=== PATIENT | male | born 1980 | race Caucasian/White ===

== ENCOUNTER 2020-05-10 10:52 | Inpatient (IN) | payer SELFPAY ==
[2020-05-10 11:06] VITALS: BP 145/117; PULSE 112; RESP 18; TEMP 36.8; O2SAT 99; BMI 25.8
[2020-05-10 11:59] LABS: Basophils % 0.2 %; Eosinophils % 0.2 %; Hematocrit 43.8 % (42.0-52.0); Hemoglobin 14.8 g/dL (11.7-16.6); Lymphocytes # 0.7 10^3/uL (0.8-4.8); Lymphocytes % 5.7 %; Mean Corpuscular HGB Conc 33.8 g/dL (30.0-36.0); Mean Corpuscular Hemoglobin 33.6 pg (28.0-34.0); Mean Corpuscular Volume 99.3 fL (80-94); Mean Platelet Volume 10.4 fL (7.4-10.4); Monocytes # 1.1 10^3/uL (0.2-0.9); Monocytes % 9.6 %; Neutrophils # 9.96 10^3/uL (1.8-7.7); Neutrophils % 83.9 %; Nucleated Red Blood Cells % 0 %; Platelet Count 154 10^3/cmm (130-400); Red Blood Count 4.41 10^6/uL (4.1-5.3); Red Cell Distribution Width 13.5 % (12.1-15.1); White Blood Count 11.9 10^3/uL (4.0-10.0)
[2020-05-10 12:04] LABS: Add Urine Microscopic? YES; Bilirubin Urine 1+ (Negative); Blood Urine 3+ (Negative); Glucose Urine UA Norm (Normal); Ketones Urine 2+ (Negative); Leukocyte Esterase Urine Negative (Negative); Nitrate Urine Negative (Negative); Protein Urine Neg (Negative); Urine Appearance SL Hazy (CLEAR); Urine Color Dark Yellow (Yellow); Urobilinogen Urine 4 mg/dL (Negative); pH Urine 5 (5-7)
[2020-05-10 12:08] LABS: RBC Urine 25-40 /hpf (0-2)
--- NOTE | 2020-05-10 12:08 | W.ED.PSYCH ---
HPI - Psych General: Chief Complaint: Psychiatric Symptoms Stated Complaint: DELUSIONS/ PSYCHOSIS Time Seen by Provider: 05/10/20 11:06 Source: patient, family and police Mode of arrival: other (law enforcement) History of Present Illness: HPI Narrative: This is a 40-year-old male who does not have a prior psychiatric history but who was brought into the emergency department by law enforcement with bizarre behavior. 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 He told the public safety police who found him that someone was in the building directing him on what to do and where to move the motions to. When the officer searched the building there was no one in the building and he looked at it, as there was no one in the building also. He figured the patient was hallucinating. While he was talking to the patient the patient also told the officer that he had maggots coming out of his eyes which he did not. I also spoke to his mother who was in the waiting room and she told me that yesterday the patient was exhibiting bizarre behavior. He was insisting that he needed to go to [place] to save a friend. The friend lives close to the patient and his mother was eventually able to get him to the friend's house and her friend was home unwell. The patient still insisted that he needed to go to [place], he said there were voices in his head telling him he needed to go and the voices also told him to take his pistol with him. His behavior frightened his mother and she was trying to get him to calm to the emergency department for evaluation but he did not. She also recently discovered that the patient has been drinking 1/5 of vodka every day for at least a year and said that he quit drinking maybe 3 to 4 days ago. When the public safety police performed a sobriety test on him he returned a 000. Associated psychiatric symptoms: auditory hallucinations and visual hallucinations Associated symptoms: Reports auditory hallucinations and visual hallucinations; Deny delusions, depression, homicidal ideation, suicidal ideation or racing thoughts Review of Systems General: Reports: 10 or more systems reviewed and unremarkable except in HPI and below Psych: Reports: visual hallucinations and auditory hallucinations; Denies: depression, suicidal ideation or homicidal ideation Physical Exam Const: COMMON NORMALS: no acute distress, average body habitus, patient oriented x3, no limitations, healthy appearing, alert and well nourished HENMT: COMMON NORMALS: normocephalic, atraumatic and moist oral mucous membranes HEAD & SCALP: normocephalic and atraumatic Neck/C-Spine: COMMON NORMALS: no meningeal signs and no JVD Resp: COMMON NORMALS: normal respiratory effort, No retractions, No use of accessory muscles, clear to auscultation bilaterally and percussion normal AUSCULTATION: clear to auscultation bilaterally PERCUSSION: percussion normal Cardio: COMMON NORMALS: no JVD, regular rate, regular rhythm, S1 normal heart sound present, S2 normal heart sound present, No gallops present (Cardio), No clicks present (Cardio), No murmurs present (Cardio), No rub (Cardio) and Peripheral pulses 2+ throughout RATE: regular rate RHYTHM: regular rhythm HEART SOUNDS: S1 normal heart sound present and S2 normal heart sound present PERIPHERAL PULSES: Peripheral pulses 2+ throughout GI: COMMON NORMALS: Normal to inspection, nondistended, normoactive bowel sounds present, Soft to palpation, non-tender, No hepatosplenomegaly present, no masses and no bruits PALPATION: Yes Soft to palpation and Yes No hepatosplenomegaly present Extremity: COMMON NORMALS: normal to inspection, full ROM, capillary refill normal, no calf tenderness and no pedal edema Neuro: COMMON NORMALS: patient oriented x3 SENSORIUM/ORIENTATION: Yes alert MENINGEAL SIGNS: Yes no meningeal signs Psych: THOUGHT CONTENT: No delusions Skin: COMMON NORMALS: no rashes or lesions noted, no wounds, turgor normal, no jaundice, no petechiae and no mottling GENERAL SKIN EXAM: no rashes or lesions noted and turgor normal MDM - Psych MDM Narrative: Medical decision making narrative: 40-year-old male who presented to the emergency department with a psychotic episode. He is admitted to the neuropsychiatric unit for further evaluation and management. Medical Records: Attestation: I reviewed the patient's medical records. Lab Data: Attestation: I reviewed the patient's lab results. Labs: Lab Results 05/10/20 05/10/20 05/10/20 Range/Units 11:30 11:30 11:57 WBC 11.9 H (4.0-10.0) 10^3/ uL RBC 4.41 (4.1-5.3) 10^6/u L Hgb 14.8 (11.7-16.6) g/dL Hct 43.8 (42.0-52.0) % MCV 99.3 H (80-94) fL MCH 33.6 (28.0-34.0) pg MCHC 33.8 (30.0-36.0) g/dL RDW 13.5 (12.1-15.1) % Plt Count 154 (130-400) 10^3/c mm MPV 10.4 (7.4-10.4) fL Neut % (Auto) 83.9 % Lymph % (Auto) 5.7 % [place] % (Auto) 9.6 % Eos % (Auto) 0.2 % Baso % (Auto) 0.2 % Neut # (Auto) 9.96 H (1.8-7.7) 10^3/u L Lymph # (Auto) 0.7 L (0.8-4.8) 10^3/u L [place] # (Auto) 1.1 H (0.2-0.9) 10^3/u L Eos # (Auto) 0.0 (0.0-0.8) 10^3/u L Baso # (Auto) 0.0 (0.0-0.1) 10^3/u L Nucleated RBC % (a uto) 0 % Nucleated RBCs # 0.0 /100WBC Sodium 136 (136-145) mmol/L Potassium 3.9 (3.5-5.1) mmol/L Chloride 88 L (98-107) mmol/L Carbon Dioxide 18 L (22-29) mmol/L Anion Gap 33.9 H (5-19) BUN 25 H (6-20) mg/dL Creatinine 1.0 (0.7-1.2) mg/dL GFR Calculation 83.2 L (90-130) mL/min Glucose 136 H (65-115) mg/dL Calculated Osmolal ity 288 (285-295) mOsm/k g Calcium 9.4 (8.5-10.5) mg/dL Total Bilirubin 2.6 H (0.15-1.2) mg/dL AST 220 H (0-40) U/L ALT 84 H (0-41) U/L Alkaline Phosphata se 103 (40-130) IU/L Total Protein 8.2 (6.6-8.7) g/dL Albumin 5.0 (3.5-5.2) g/dL Globulin 3.2 (1.3-4.6) g/dL TSH 0.47 (0.27-4.20) uIU/ mL Urine Color (Yellow) Urine Appearance (CLEAR) Urine pH (5-7) Ur Specific Gravit y (1.005-1.030) Urine Protein (Negative) Urine Glucose (UA) (Normal) Urine Ketones (Negative) Urine Blood (Negative) Urine Nitrate (Negative) Urine Bilirubin (Negative) Urine Urobilinogen (Negative) mg/dL Ur Leukocyte Nicolle ase (Negative) Urine RBC (0-2) /hpf Urine WBC (0-5) /hpf Ur Squamous Epith Cells (0-5) /hpf Amorphous Sediment Urine Bacteria (NONE) /hpf Hyaline Casts /lpf Urine Mucus /hpf Salicylates 0.4 L (3-10) mg/dL Urine Opiates Scre en Negative (Negative) ng/mL Acetaminophen < 5.0 L (10-30) ug/mL Ur Barbiturates Sc reen Negative (Negative) ng/mL Ur Phencyclidine S crn Negative (Negative) ng/mL Ur Amphetamines Sc reen Negative (Negative) ng/mL U Benzodiazepines Scrn Negative (Negative) ng/mL Urine Cocaine Scre en Negative (Negative) ng/mL U Marijuana (THC) Screen Negative (Negative) ng/mL 05/10/20 Range/Units 11:57 WBC (4.0-10.0) 10^3/ uL RBC (4.1-5.3) 10^6/u L Hgb (11.7-16.6) g/dL Hct (42.0-52.0) % MCV (80-94) fL MCH (28.0-34.0) pg MCHC (30.0-36.0) g/dL RDW (12.1-15.1) % Plt Count (130-400) 10^3/c mm MPV (7.4-10.4) fL Neut % (Auto) % Lymph % (Auto) % [place] % (Auto) % Eos % (Auto) % Baso % (Auto) % Neut # (Auto) (1.8-7.7) 10^3/u L Lymph # (Auto) (0.8-4.8) 10^3/u L [place] # (Auto) (0.2-0.9) 10^3/u L Eos # (Auto) (0.0-0.8) 10^3/u L Baso # (Auto) (0.0-0.1) 10^3/u L Nucleated RBC % (a uto) % Nucleated RBCs # /100WBC Sodium (136-145) mmol/L Potassium (3.5-5.1) mmol/L Chloride (98-107) mmol/L Carbon Dioxide (22-29) mmol/L Anion Gap (5-19) BUN (6-20) mg/dL Creatinine (0.7-1.2) mg/dL GFR Calculation (90-130) mL/min Glucose (65-115) mg/dL Calculated Osmolal ity (285-295) mOsm/k g Calcium (8.5-10.5) mg/dL Total Bilirubin (0.15-1.2) mg/dL AST (0-40) U/L ALT (0-41) U/L Alkaline Phosphata se (40-130) IU/L Total Protein (6.6-8.7) g/dL Albumin (3.5-5.2) g/dL Globulin (1.3-4.6) g/dL TSH (0.27-4.20) uIU/ mL Urine Color Dark yellow (Yellow) Urine Appearance Sl hazy (CLEAR) Urine pH 5 (5-7) Ur Specific Gravit y 1.030 (1.005-1.030) Urine Protein Neg (Negative) Urine Glucose (UA) Norm (Normal) Urine Ketones 2+ H (Negative) Urine Blood 3+ H (Negative) Urine Nitrate Negative (Negative) Urine Bilirubin 1+ H (Negative) Urine Urobilinogen 4 H (Negative) mg/dL Ur Leukocyte Nicolle ase Negative (Negative) Urine RBC 25-40 H (0-2) /hpf Urine WBC Rare (0-5) /hpf Ur Squamous Epith Cells Rare (0-5) /hpf Amorphous Sediment Not Reportable Urine Bacteria 2+ H (NONE) /hpf Hyaline Casts 40-55 H /lpf Urine Mucus 1+ /hpf Salicylates (3-10) mg/dL Urine Opiates Scre en (Negative) ng/mL Acetaminophen (10-30) ug/mL Ur Barbiturates Sc reen (Negative) ng/mL Ur Phencyclidine S crn (Negative) ng/mL Ur Amphetamines Sc reen (Negative) ng/mL U Benzodiazepines Scrn (Negative) ng/mL Urine Cocaine Scre en (Negative) ng/mL U Marijuana (THC) Screen (Negative) ng/mL Discharge Plan Discharge Patient Disposition: Admitted As Inpatient Admit Provider: Geo Werner Clinical Impression: Acute psychosis, Alcohol use disorder Condition: Stable Coding Level of Care Code ED Client Development Consultant for Mauro Day
[2020-05-10 12:09] LABS: Bacteria Urine 2+ /hpf; Squamous Epithelial Cell Urine RARE /hpf (0-5); WBC Urine RARE /hpf (0-5)
[2020-05-10 12:10] LABS: Hyaline Casts Urine 40-55 /lpf; Mucus Urine 1+ /hpf
[2020-05-10 12:11] LABS: Add Urine Culture? Yes
[2020-05-10 12:12] LABS: Amphetamines Screen Urine Negative (Negative); Barbiturates Screen Urine Negative (Negative); Benzodiazepines Screen Urine Negative (Negative); Cocaine Screen Urine Negative (Negative); Opiate Screen Urine Negative (Negative); PCP Screen Urine Negative (Negative); THC Screen Urine Negative (Negative)
[2020-05-10 12:22] LABS: Alanine Aminotransferase 84 U/L (0-41); Alkaline Phosphatase 103 IU/L (40-130); Anion Gap 33.9 (5-19); Aspartate Amino Transferase 220 U/L (0-40); Blood Urea Nitrogen 25 mg/dL (6-20); Calcium 9.4 mg/dL (8.5-10.5); Carbon Dioxide 18 mmol/L (22-29); Chloride 88 mmol/L (98-107); Globulin 3.2 g/dL (1.3-4.6); Glomerular Filtration Rate 83.2 mL/min (90-130); Glucose 136 mg/dL (65-115); Osmolality Calculated 288 mOsm/kg (285-295); Potassium 3.9 mmol/L (3.5-5.1); Salicylate 0.4 mg/dL (3-10); Sodium 136 mmol/L (136-145); Thyroid Stimulating Hormone 0.47 uIU/mL (0.27-4.20); Total Bilirubin 2.6 mg/dL (0.15-1.2); Total Protein 8.2 g/dL (6.6-8.7)
[2020-05-10 12:37] LABS: Acetaminophen < 5.0 ug/mL (10-30)
[2020-05-10 14:04] VITALS: BP 143/93; PULSE 102; RESP 16; O2SAT 98
[2020-05-10 14:10] VITALS: BP 143/93; PULSE 102; RESP 16; O2SAT 98
[2020-05-10] MEDS: multivitamin therapeutic Tablet 1 TAB PO (14:14)
[2020-05-10] MEDS: folic acid 1 mg Tablet PO (14:15)
[2020-05-10 14:34] VITALS: BP 123/85; PULSE 109; RESP 20; TEMP 36.6; O2SAT 95
[2020-05-10 18:22] VITALS: BP 123/85; PULSE 109; RESP 20; TEMP 36.6; O2SAT 95
[2020-05-10 20:14] VITALS: BP 119/82; PULSE 122; RESP 17; TEMP 37.5; O2SAT 97
--- NOTE | 2020-05-10 23:22 | PC.NURSE ---
Staff was doing 2315 rounds when staff walked by patients room patient stated, I heard what you said. Is it true? Staff asked patient if he was hearing this because no one has said anything. Patient then states, I guess I don't know why I'm here. Staff informed patient of why he brought to the unit. 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 Patients states that he remembers the copy holder having something on his glasses and saying that it looked like a maggot.
[2020-05-11 06:00] VITALS: BP 143/93; PULSE 90; RESP 18; TEMP 36.9; O2SAT 97
[2020-05-11] MEDS: folic acid 1 mg Tablet PO (08:20)
[2020-05-11] MEDS: thiamine 100 mg Tablet PO (08:20)
[2020-05-11] MEDS: multivitamin therapeutic Tablet 1 TAB PO (08:20)
--- NOTE | 2020-05-11 10:39 | PM.NHP ---
Providers/Chief Complaint Admitting Physician: Geo Werner MD Chief Complaint: VISUAL HALLUCINATIONS HPI NPU History of Present Illness Chava Jules is a 40 year old male who presented to the emergency department with the following report: Chief Complaint: Psychiatric Symptoms Stated Complaint: DELUSIONS/ PSYCHOSIS Time Seen by Provider: 05/10/20 11:06 Source: patient, family and police Mode of arrival: other (law enforcement) History of Present Illness: HPI Narrative: This is a 40-year-old male who does not have a prior psychiatric history but who was brought into the emergency department by law enforcement with bizarre behavior. 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 He told the police reserves commander who found him that someone was in the building directing him on what to do and where to move the motions to. When the officer searched the building there was no one in the building and he looked at it, as there was no one in the building also. He figured the patient was hallucinating. While he was talking to the patient the patient also told the officer that he had maggots coming out of his eyes which he did not. I also spoke to his mother who was in the waiting room and she told me that yesterday the patient was exhibiting bizarre behavior. He was insisting that he needed to go to [place] to save a friend. The friend lives close to the patient and his mother was eventually able to get him to the friend's house and her friend was home unwell. The patient still insisted that he needed to go to [place], he said there were voices in his head telling him he needed to go and the voices also told him to take his pistol with him. His behavior frightened his mother and she was trying to get him to calm to the emergency department for evaluation but he did not. She also recently discovered that the patient has been drinking 1/5 of vodka every day for at least a year and said that he quit drinking maybe 3 to 4 days ago. When the police reserves commander performed a sobriety test on him he returned a 000. Associated psychiatric symptoms: auditory hallucinations and visual hallucinations Associated symptoms: Reports auditory hallucinations and visual hallucinations; Deny delusions, depression, homicidal ideation, suicidal ideation or racing thoughts. He is admitted to the neuropsychiatric unit for definitive treatment of those issues. He denied any inpatient psychiatric services, outpatient psychiatric services or significant medication management of any sort. He reports that he took about a pack and half cigarettes a day and reports that he drinks alcohol daily but he quit 3 weeks ago. He denies marijuana use any other illicit drugs. He never been to rehab and never had a DUI. He denies any suicide attempts in his life. He reports that things got strained after he stopped drinking a significant amount daily 3 weeks ago he reports it was really rough going through that withdrawal but he felt fairly good after he got through that first week. He reports that however since then he is having these strange experiences of hearing voices, sounds like a seeing things but often. He reports that over the last week is primarily the hearing sounds and voices. He had what he described as a blackout over the last 48 hours where he really cannot remember with her. 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 Likely they are not pressing charges as it is a [facility] facility and they all assisted in getting here to the hospital to get help. We discussed the risks benefits and alternatives of a trial of Abilify and some trazodone for sleep and he understood and agreed to proceed as is documented in this note. Psychiatric history: As above. Substance abuse history: As above. Family history: He endorses mental health issues on his mother side and addiction issues on his father side and reports having uncles on his mother side that have completed suicide. Developmental history: There were no problems with the , or delivery, learned to walk and talk and met developmental milestones on time, and denies need for speech therapy, learning support, emotional support or special education classes. Psychosocial history: He reports that his parents were together when he was born and that he is the only product of that union. Neither parent has any other children. He reports that his childhood was not bad and he denies emotional, physical or sexual abuse. He graduated from high school and had about a year and a half at [employer]. He endorses being heterosexual but denies ever having any serious relationships. He endorses that he is not very social but he does have his longest relationship as a year and a half but again he reiterated not being very serious. He never been , he never had children, has never been in the and reports that he was raised Rastafari. 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 He reports living in a trailer alone. Legal history: He denies ever being in [facility] or having any legal peril. Medical history: See ED note for full details Meds NPU Home Medications Medication Instructions Recorded Confirmed Last Taken Type No Known Home Medications 05/11/20 05/11/20 Unknown History Allergies Allergy/AdvReac Type Severity Reaction Status Date / Time No Known Allergies Allergy Verified 05/10/20 11:13 Mental Status Exam MSE Comments: This is a well-nourished, well-developed white male in hospital scrubs with limited grooming and adequate eye contact. No abnormal movements except for mild tremulousness. Cooperative with exam in mild distress. Speech was normal rate and volume with some stammering. Mood described as fine, affect anxious. Thought process organized. Thought content: Patient denied suicidal or homicidal ideation, there were no delusions reported or noted, he did endorse auditory hallucinations but no visual hallucinations. Attention and concentration were intact and memory appeared reliable but none were formally tested. He is alert and oriented x3. Insight and judgment appeared fair and impulse control was limited. Vitals/I&O/Wt Last Vital Signs Temp 98.5 F 05/11/20 06:00 Pulse 90 05/11/20 06:00 Resp 18 05/11/20 06:00 BP 143/93 05/11/20 06:00 Pulse Ox 97 05/11/20 06:00 Data NPU : 05/10/20 11:30 05/10/20 11:30 Micro: Microbiology 05/10/20 11:57 Urine Culture - Final Urine,Clean Catch Microbiology 05/10/20 11:57 Urine,Clean Catch Urine Culture - Final A&P Assessment and plan (1) Acute psychosis: Status: Acute (2) Alcohol use disorder: Status: Acute Additional A&P Information This is a 40-year-old white male with no significant history [place] history of alcohol use/addiction who presents 3 weeks or so after his discontinuation of drinking cold turkey with psychotic symptoms. 1. Continue current medication. Start Abilify 10 mg p.o. every morning for psychosis. 2. Continue every 15 minute checks for safety. 3. Encourage individual, group and milieu therapies. 4. Encourage sober living treatment after discharge at the highest level of care to which he is willing to commit. Involuntary Hold Information 96 Hour Hold: 96 Hour Involuntary Admission: Yes 96 Hour Hold Ending Time: 12:01 Attestations NPU Medical Necessity Statement*: Inpatient hospitalization is medically necessary and the clinically appropriate intervention at this time. We will monitor medications and make changes as indicated. Patient will be in the hospital for over two midnights. Likely length of stay 3 to 5 days. Coding Level of Care Code Acute Stoneworking Sander for Mauro Day Diagnoses Acute psychosis F23 Alcohol use disorder
[2020-05-11 13:42] VITALS: BP 131/80; PULSE 110; RESP 18; TEMP 37.2; O2SAT 96
[2020-05-11] MEDS: ARIPiprazole 10 mg Tablet PO (14:52)
[2020-05-11] MEDS: trazodone 50 mg Tablet PO (20:37)
--- NOTE | 2020-05-11 20:40 | PC.NURSE ---
It was reported to present staff in report, that Dr Werner recommended this pt be given HS sleep aide to help him sleep due to pt not sleeping much the prior night. Trazodone 50mg po given.
[2020-05-11 20:59] VITALS: BP 142/91; PULSE 95; RESP 16; TEMP 36.8; O2SAT 97
--- NOTE | 2020-05-11 21:15 | PC.NURSE ---
Pt resting quietly in room with blanket pulled over his head.
[2020-05-12 06:00] VITALS: BP 144/90; PULSE 97; RESP 17; TEMP 36.8; O2SAT 96
[2020-05-12] MEDS: folic acid 1 mg Tablet PO (07:52)
[2020-05-12] MEDS: thiamine 100 mg Tablet PO (07:52)
[2020-05-12] MEDS: multivitamin therapeutic Tablet 1 TAB PO (07:52)
[2020-05-12] MEDS: ARIPiprazole 10 mg Tablet PO (07:52)
--- NOTE | 2020-05-12 13:40 | P.PN_ITS ---
Subjective NPU Subjective: Interval history: Chava presents today reporting that the medication is very helpful. He reports that after approximately an hour of sleeping after he took the medication when he woke up he felt that some of the noise and activity in his brain had greatly slowed down and is even better this morning. He reports he slept fairly well with the trazodone and is feeling very positive about coming to the hospital. We discussed monitoring him a little longer and making sure that we have appropriate plans for follow-up. Mental Status Exam MSE Comments: This is a well-nourished, well-developed white male in hospital scrubs with limited grooming and adequate eye contact. No abnormal movements except for mild tremulousness. Cooperative with exam in less distress. Speech was normal rate and volume with some stammering. Mood described as better, affect less anxious. Thought process organized. Thought content: Patient denied suicidal or homicidal ideation, there were no delusions reported or noted, he endorsed improvement in his auditory hallucinations but no visual hallucinations. Attention and concentration were intact and memory appeared reliable but none were formally tested. He is alert and oriented x3. Insight and judgment appeared fair and impulse control was limited. Vitals/I&O/Wt Last Vital Signs Temp 98.2 F 05/12/20 06:00 Pulse 97 05/12/20 06:00 Resp 17 05/12/20 06:00 BP 144/90 05/12/20 06:00 Pulse Ox 96 05/12/20 06:00 Data NPU : 05/10/20 11:30 05/10/20 11:30 Micro: Microbiology 05/10/20 11:57 Urine Culture - Final Urine,Clean Catch Microbiology 05/10/20 11:57 Urine,Clean Catch Urine Culture - Final A&P Additional A&P Information (1) Acute psychosis: (2) Alcohol use disorder: Additional A&P Information This is a 40-year-old white male with no significant history [place] history of alcohol use/addiction who presents 3 weeks or so after his discontinuation of drinking cold turkey with psychotic symptoms. 1. Continue current medication. We will consider starting propranolol. 2. Continue every 15 minute checks for safety. 3. Encourage individual, group and milieu therapies. 4. Encourage sober living treatment after discharge at the highest level of care to which he is willing to commit. Involuntary Hold Information 96 Hour Hold: 96 Hour Involuntary Admission: Yes 96 Hour Hold Ending Time: 12:01 Attestations NPU Medical Necessity Statement*: Inpatient hospitalization is medically necessary and the clinically appropriate intervention at this time. We will monitor medications and make changes as indicated. Likely length of stay 2-4 days. Coding Level of Care Code Acute Hooking Machine Operator for Mauro Day
[2020-05-12 14:00] VITALS: BP 144/94; PULSE 98; RESP 20; TEMP 37.2; O2SAT 96
[2020-05-12] MEDS: trazodone 50 mg Tablet PO (19:53)
[2020-05-12 19:54] VITALS: BP 144/95; PULSE 108; RESP 16; TEMP 36.9; O2SAT 96
--- NOTE | 2020-05-12 20:10 | PC.NURSE ---
pt given trazodone 50mg po given per Dr Werner recommendations.
[2020-05-13 06:00] VITALS: BP 157/110; PULSE 106; RESP 14; TEMP 37; O2SAT 97
[2020-05-13] MEDS: thiamine 100 mg Tablet PO (08:00)
[2020-05-13] MEDS: ARIPiprazole 10 mg Tablet PO (08:00)
[2020-05-13] MEDS: multivitamin therapeutic Tablet 1 TAB PO (08:01)
[2020-05-13] MEDS: folic acid 1 mg Tablet PO (08:01)
[2020-05-13 13:55] VITALS: BP 130/89; PULSE 102; RESP 17; TEMP 36.9; O2SAT 97
--- NOTE | 2020-05-13 18:14 | PM.NPN ---
Subjective NPU Subjective: Interval history: Chava presents today reporting that he is feeling better each day. With a lengthy discussion about the possibility of him using some time after he stopped over 3 weeks ago with his drinking. He had no recollection of that. We discussed that is why the concern is significant given the timeframe for his blackout. Otherwise the we discussed the risks, benefits and alternatives of discharge tomorrow and he understood and agreed to proceed as is documented in this note. Mental Status Exam MSE Comments: This is a well-nourished, well-developed white male in hospital scrubs with limited grooming and adequate eye contact. No abnormal movements except for mild/resolving tremulousness. Cooperative with exam in no acute distress. Speech was normal rate and volume with less stammering. Mood described as better, affect congruent. Thought process organized. Thought content: Patient denied suicidal or homicidal ideation, there were no delusions reported or noted, he denied auditory or visual hallucinations. Attention and concentration were intact and memory appeared reliable except for the blackout events, but none were formally tested. He is alert and oriented x3. Insight and judgment appeared fair and impulse control was limited, but improving. Vitals/I&O/Wt Last Vital Signs Temp 99.7 F H 05/13/20 21:14 Pulse 104 H 05/13/20 21:14 Resp 15 05/13/20 21:14 BP 127/85 05/13/20 21:14 Pulse Ox 95 05/13/20 21:14 Data NPU : 05/10/20 11:30 05/10/20 11:30 A&P Additional A&P Information (1) Acute psychosis: (2) Alcohol use disorder: Additional A&P Information This is a 40-year-old white male with no significant history [place] history of alcohol use/addiction who presents 3 weeks or so after his discontinuation of drinking cold with psychotic symptoms. 1. Continue current medication. 2. Continue every 15 minute checks for safety. 3. Encourage individual, group and milieu therapies. 4. Encourage sober living treatment after discharge at the highest level of care to which he is willing to commit. Involuntary Hold Information 96 Hour Hold: 96 Hour Involuntary Admission: Yes 96 Hour Hold Ending Time: 12:01 Attestations NPU Medical Necessity Statement*: Inpatient hospitalization is medically necessary and the clinically appropriate intervention at this time. We will monitor medications and make changes as indicated. Likely length of stay 1-2 days. Coding Level of Care Code Acute Facility Specialist for Mauro Day
[2020-05-13 21:14] VITALS: BP 127/85; PULSE 104; RESP 15; TEMP 37.6; O2SAT 95
--- NOTE | 2020-05-14 05:06 | PC.NURSE ---
PM ASSESSMENT HEART/LUNG SOUNDS NORMAL, V/S ARE WNL, DENIES PAIN, DENIES SI/HI. DENIES AH/VH. PT IS COOPERATIVE WITH STAFF, ASKS AND ANSWERS QUESTION APPROPRIATELY, INTERACTING WITH OTHER PATIENTS IN AN APPROPRIATE MANNER,WILL CONTINUE TO OBSERVE
[2020-05-14 06:00] VITALS: BP 131/88; PULSE 92; RESP 17; TEMP 37.2; O2SAT 98
[2020-05-14] MEDS: propranolol 20 mg Tablet PO (08:19)
[2020-05-14] MEDS: ARIPiprazole 10 mg Tablet PO (08:19)
[2020-05-14] MEDS: multivitamin therapeutic Tablet 1 TAB PO (08:19)
[2020-05-14] MEDS: thiamine 100 mg Tablet PO (08:19)
[2020-05-14] MEDS: folic acid 1 mg Tablet PO (08:19)
--- NOTE | 2020-05-14 11:31 | PM.NDC ---
Diagnoses at Discharge Discharge Diagnosis (1) Acute psychosis: Status: Acute (2) Alcohol use disorder: Status: Acute Reason for Visit Reason for Visit: VISUAL HALLUCINATIONS Brief History: History of Present Illness Chava Jules is a 40 year old male who presented to the emergency department with the following report: Chief Complaint: Psychiatric Symptoms Stated Complaint: DELUSIONS/ PSYCHOSIS Time Seen by Provider: 05/10/20 11:06 Source: patient, family and police Mode of arrival: other (law enforcement) History of Present Illness: HPI Narrative: This is a 40-year-old male who does not have a prior psychiatric history but who was brought into the emergency department by law enforcement with bizarre behavior. 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 He told the regulatory compliance officer who found him that someone was in the building directing him on what to do and where to move the motions to. When the officer searched the building there was no one in the building and he looked at it, as there was no one in the building also. He figured the patient was hallucinating. While he was talking to the patient the patient also told the officer that he had maggots coming out of his eyes which he did not. I also spoke to his mother who was in the waiting room and she told me that yesterday the patient was exhibiting bizarre behavior. He was insisting that he needed to go to [place] to save a friend. The friend lives close to the patient and his mother was eventually able to get him to the friend's house and her friend was home unwell. The patient still insisted that he needed to go to [place], he said there were voices in his head telling him he needed to go and the voices also told him to take his pistol with him. His behavior frightened his mother and she was trying to get him to calm to the emergency department for evaluation but he did not. She also recently discovered that the patient has been drinking 1/5 of vodka every day for at least a year and said that he quit drinking maybe 3 to 4 days ago. When the regulatory compliance officer performed a sobriety test on him he returned a 000. Associated psychiatric symptoms: auditory hallucinations and visual hallucinations Associated symptoms: Reports auditory hallucinations and visual hallucinations; Deny delusions, depression, homicidal ideation, suicidal ideation or racing thoughts. He is admitted to the neuropsychiatric unit for definitive treatment of those issues. He denied any inpatient psychiatric services, outpatient psychiatric services or significant medication management of any sort. He reports that he took about a pack and half cigarettes a day and reports that he drinks alcohol daily but he quit 3 weeks ago. He denies marijuana use any other illicit drugs. He never been to rehab and never had a DUI. He denies any suicide attempts in his life. He reports that things got strained after he stopped drinking a significant amount daily 3 weeks ago he reports it was really rough going through that withdrawal but he felt fairly good after he got through that first week. He reports that however since then he is having these strange experiences of hearing voices, sounds like a seeing things but often. He reports that over the last week is primarily the hearing sounds and voices. He had what he described as a blackout over the last 48 hours where he really cannot remember with her. 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 Likely they are not pressing charges as it is a [facility] and they all assisted in getting here to the hospital to get help. We discussed the risks benefits and alternatives of a trial of Abilify and some trazodone for sleep and he understood and agreed to proceed as is documented in this note. Psychiatric history: As above. Substance abuse history: As above. Family history: He endorses mental health issues on his mother side and addiction issues on his father side and reports having uncles on his mother side that have completed suicide. Developmental history: There were no problems with the , or delivery, learned to walk and talk and met developmental milestones on time, and denies need for speech therapy, learning support, emotional support or special education classes. Psychosocial history: He reports that his parents were together when he was born and that he is the only product of that union. Neither parent has any other children. He reports that his childhood was not bad and he denies emotional, physical or sexual abuse. He graduated from high school and had about a year and a half at [employer]. He endorses being heterosexual but denies ever having any serious relationships. He endorses that he is not very social but he does have his longest relationship as a year and a half but again he reiterated not being very serious. He never been , he never had children, has never been in the and reports that he was raised Yazdanism. 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 He reports living in a trailer alone. Legal history: He denies ever being in alf or having any legal peril. Medical history: See ED note for full details Hospital Course Hospital Course Chava presented to the emergency department with active addiction with some significant blackout events leading to him having police involvement with no recollection of him going to an old job location believing he still worked there with concerns for lethality and psychosis. He was admitted to the neuropsychiatric unit for definitive treatment of those issues. On the unit he slowly acclimated to the individual, group and milieu therapies provided we did provide appropriate withdrawal protocols and protection from Warnicke's with thiamine multivitamins and folate. He was started on Abilify 10 mg p.o. every morning for psychosis with marked improvement. Was able to contract for safety prior to discharge. During the hospitalization, patient had routine laboratory studies which were within normal limits except for few outliers. Additionally there was a general medical evaluation which was also within normal limits and revealed no new acute processes. Discharge Summary: At the time of discharge, lethality was denied and psychosis was resolving. Mood and anxiety were well managed. Patient endorsed a plan to avoid all drugs of abuse and follow-up with the aftercare recommendations of the treatment team. Patient was evaluated and deemed to be absent credible lethality, and had achieved the maximum benefit from an inpatient hospitalization, so was discharged. Involuntary Hold Information 96 Hour Hold: 96 Hour Involuntary Admission: Yes 96 Hour Hold Ending Time: 12:01 Mental Status Exam MSE Comments: This is a well-nourished, well-developed white male in hospital scrubs with adequate grooming and eye contact. No abnormal movements. Cooperative with exam in no acute distress. Speech was normal rate and volume with less stammering. Mood described as pretty good, affect congruent. Thought process organized. Thought content: Patient denied suicidal or homicidal ideation, there were no delusions reported or noted, he denied auditory or visual hallucinations. Attention and concentration were intact and memory appeared reliable except for the blackout events, but none were formally tested. He is alert and oriented x3. Insight and judgment appeared fair and impulse control was limited, but improving. Discharge Data Vitals: Last Vital Signs Temp 99.0 F 05/14/20 06:00 Pulse 92 05/14/20 06:00 Resp 17 05/14/20 06:00 BP 131/88 05/14/20 06:00 Pulse Ox 98 05/14/20 06:00 Discharge Plan Discharge Patient Disposition: Home Condition: Stable Prescriptions: New folic acid 1 mg Tablet 1 mg PO DAILY 30 Days RF: 0 propranolol 20 mg Tablet 20 mg PO TID 30 Days Qty: 90 RF: 1 aripiprazole 10 mg Tablet 10 mg PO DAILY 30 Days Qty: 30 RF: 1 Vitamin B-1 (mononitrate) 100 mg Tablet 100 mg PO DAILY 30 Days Qty: 30 RF: 1 Thera 400 mcg Tablet 1 tab PO DAILY 30 Days RF: 0 Discharge Orders: Discharge Order (Routine); Ordered 05/14/20 Ordered By: Geo Werner Referrals: [facility] [place] [facility] [Outside] Rina Fabian DO [Physician] - 05/26/20 1:15 pm (Appointment with Dr. Fabian initial visit. ) Discharge Diet: Regular Discharge Activity: Resume usual activity Discharge Attestations NPU Time Spent in Discharge Care*: less than 30 min Specific Discharge Activities: Specific discharge activities: educating patient, discussing with manager case/social workers/dc planners, documenting/other paperwork and evaluating patient/reviewing data Coding Level of Care Code Acute Magneto Specialist for Mauro Day Diagnoses Acute psychosis F23 Alcohol use disorder
[2020-05-14 11:42] VITALS: BP 131/88; PULSE 92; RESP 17; TEMP 37.2; O2SAT 98
== END 2020-05-14 12:16 | disposition home or self-care (01) | DRG 885 ==
LOC: ER 12:17 → NP 12:45
PROVIDERS: Admitting Provider Psychiatry & Neurology Psychiatry; Emergency Provider Family Medicine; Visit Provider Psychiatry & Neurology Psychiatry
DX: F23 Brief psychotic disorder (principal); F10.10 Alcohol abuse, uncomplicated; Z81.8 Family history of other mental and behavioral disorders
CPT/HCPCS: 80053; 80306; 80307; 81001; 84443; 85025; 87086; 99285; J3411

== ENCOUNTER → 2020-10-29 15:06 | Outpatient (BNVA) | payer OTHER, SELFPAY | PROVIDERS: PCP Family Medicine; Visit Provider Nurse Practitioner Family | DX: Z02.6 Encounter for examination for insurance purposes (principal); S61.210A Laceration without foreign body of right index finger without damage to nail, initial encounter; S51.811A Laceration without foreign body of right forearm, initial encounter; X58.XXXA Exposure to other specified factors, initial encounter | CPT/HCPCS: 80307 ==

== ENCOUNTER 2022-06-08 12:58 | Inpatient (IN) | payer OTHER, SELFPAY ==
[2022-06-08] VITALS (17 sets, daily range): BP systolic 136–156; BP diastolic 87–98; PULSE 77–95; RESP 14–24; TEMP 37.1–37.4; O2SAT 94–98; BMI 29.2
[2022-06-08 15:36] LABS: Basophils # 0.1 10^3/uL (0.0-0.1); Basophils % 0.7 %; Eosinophils # 0.6 10^3/uL (0.0-0.8); Eosinophils % 5.1 %; Hematocrit 45.1 % (42.0-52.0); Hemoglobin 14.6 g/dL (11.7-16.6); Lymphocytes # 1.6 10^3/uL (0.8-4.8); Mean Corpuscular HGB Conc 32.4 g/dL (30.0-36.0); Mean Corpuscular Hemoglobin 31.5 pg (28.0-34.0); Mean Corpuscular Volume 97.2 fl (80-94); Mean Platelet Volume 9.2 fL (7.4-10.4); Monocytes % 8.7 %; Neutrophils # 7.62 10^3/uL (1.8-7.7); Neutrophils % 69.9 %; Nucleated Red Blood Cells % 0 %; Platelet Count 244 10^3/cmm (130-400); Red Blood Count 4.64 10^6/uL (4.1-5.3); Red Cell Distribution Width 13.2 % (12.1-15.1); White Blood Count 10.9 10^3/uL (4.0-10.0)
[2022-06-08 16:02] LABS: Alanine Aminotransferase 7 U/L (0-41); Albumin Level 3.7 g/dL (3.5-5.2); Alkaline Phosphatase 86 U/L (40-130); Anion Gap 17.8 (5-19); Aspartate Amino Transferase 15 U/L (0-40); Blood Urea Nitrogen 8 mg/dL (6-20); Calcium 8.7 mg/dL (8.5-10.5); Carbon Dioxide 23 mmol/L (22-29); Chloride 99 mmol/L (98-107); Globulin 2.8 g/dL (1.3-4.6); Glomerular Filtration Rate 148.5 mL/min (90-130); Glucose 90 mg/dL (65-115); Lipase 256 U/L (13-60); Osmolality Calculated 280 mOsm/kg (285-295); Potassium 3.8 mmol/L (3.5-5.1); Sodium 136 mmol/L (136-145); Total Bilirubin 0.7 mg/dL (0.15-1.2); Total Protein 6.5 g/dL (6.6-8.7)
--- NOTE | 2022-06-08 18:08 | PC.NURSE ---
VS OBTAINED VIA TECH
--- NOTE | 2022-06-08 19:08 | CTR_ITS ---
PROCEDURE INFORMATION: Exam: CT Abdomen And Pelvis With Contrast Exam date and time: 06/08/2022 7:51 PM Age: 42 years old Clinical indication: Abdominal pain; Generalized; Patient HX: C/O diffuse abd pain. Elevated lipase. ; Additional info: Elevated lipase, abd pain TECHNIQUE: Imaging protocol: Computed tomography of the abdomen and pelvis with contrast. Sagittal and coronal reformatted images were created and reviewed. Radiation optimization: All CT scans at this facility use at least one of these dose optimization techniques: automated exposure control; mA and/or kV adjustment per patient size (includes targeted exams where dose is matched to clinical indication); or iterative reconstruction. Contrast material: OMNI 350; Contrast volume: 100 ml; Contrast route: INTRAVENOUS (IV); REPORTING DATA: Count of CT and Cardiac NM exams in prior 12 months: This patient has received 0 known CTs and 0 known cardiac nuclear medicine studies in the 12 months prior to the current study. COMPARISON: CR XR abdomen min 2V [id number] 06/07/2022 10:31 AM RADIATION DOSE METRICS: Total DLP (mGy-cm): 643.36 FINDINGS: Lungs: Visualized lungs are clear. Calcified granuloma in the right middle lobe. Pleural spaces: No pleural effusion. Heart: Visualized portions of the heart are unremarkable. Liver: Nodular contour of the liver with hypertrophy of the left hepatic lobe. Gallbladder and bile ducts: The gallbladder is unremarkable. No biliary ductal dilatation. No biliary ductal dilatation. Pancreas: Enlargement of the head of the pancreas with associated peripancreatic inflammatory change and small amount of free fluid, consistent with focal mild acute pancreatitis. Findings suspicious for a small pseudocyst in the head of the pancreas. No pancreatic necrosis. Small fluid collection in the head of the pancreas measures 1.3 x 0.7 cm (series 3, image 35). Findings are suspicious for a small pseudocyst. Spleen: The spleen is unremarkable. Adrenal glands: The right and left adrenal glands are unremarkable. Kidneys and ureters: The right and left kidneys are unremarkable. The right and left ureters are unremarkable. Stomach and bowel: There is severe wall thickening with surrounding marked inflammation and fluid of the distal ascending colon and hepatic flexure with foci of pneumatosis at the hepatic flexure (series 3, images 34-49). Appendix: The appendix is visualized and is unremarkable. No evidence of appendicitis. Intraperitoneal space: Small volume ascites. Vasculature: Minimal atherosclerotic changes in the visualized arteries. No evidence for aortic aneurysm or aortic dissection. Hepatic veins, portal veins, splenic vein, and SMV are patent. Lymph nodes: No lymphadenopathy. Urinary bladder: Diffuse, mild wall thickening of the bladder. Reproductive: Unremarkable as visualized. Bones/joints: Bilateral pars defects at L5 with grade 1 anterolisthesis of L5 on S1. Mild spinal canal stenosis at L2-L3 through L5-S1. Multilevel foraminal stenosis of varying severity in the lumbar spine. Soft tissues: No acute abnormality in the extra-abdominal soft tissues. CT/CT abdomen pelvis w con* [id number] IMPRESSION: 1. Findings consistent with severe colitis in the distal ascending colon and hepatic flexure. Pneumatosis at the hepatic flexure, findings are concerning for a possible ischemic colitis. Recommend clinical correlation. 2. Changes consistent with focal mild acute pancreatitis involving the head of the pancreas. No pancreatic necrosis. Findings suggesting a small pseudocyst in the head of the pancreas. 3. Diffuse, mild wall thickening of the bladder. In the correct clinical setting, this may suggest cystitis. Recommend correlation with laboratory findings. Alternatively, this may be secondary to chronic outlet obstruction. 4. Findings consistent with cirrhosis and mild portal hypertension with small volume ascites. 5. Incidental/nonacute findings are listed in the report.
--- NOTE | 2022-06-08 19:09 | ED_ITS ---
HPI - Abdominal Pain General: Chief Complaint: Abdominal Pain Stated Complaint: abd pain Time Seen by Provider: 06/08/22 19:07 History of Present Illness: 42-year-old male patient comes in today with mid abdominal pain. Patient reports that he has had some significant abdominal discomfort and pain for the last 3 to 4 days. Patient also reports similar symptoms about 1 month ago. At that time patient was told he was constipated. Patient denies any recent alcohol use. Patient appears nontoxic. Abdomen soft with some epigastric tenderness. Associated Symptoms: Reports nausea; Denies constipation, diarrhea, fever(s) and vomiting Review of Systems General: Reports: 10 or more systems reviewed and unremarkable except in HPI and below Const: Denies: fever(s) Resp: Denies: dyspnea GI: Reports: abdominal pain and nausea; Denies: vomiting, diarrhea or constipation Skin/Breast: Denies: rash PFSH ED 2 PFSH: Medical History Insomnia Surgical History No pertinent past surgical history Family History Other Chronic kidney disease (CKD) Diabetes Social History Smoking and tobacco status: never smoked Alcohol intake: never Substance/Drug Use: never Physical Exam Const: COMMON NORMALS: alert HENMT: COMMON NORMALS: normocephalic HEAD & SCALP: normocephalic Neck/C-Spine: COMMON NORMALS: full ROM Resp: COMMON NORMALS: normal respiratory effort and clear to auscultation bilaterally AUSCULTATION: clear to auscultation bilaterally Cardio: COMMON NORMALS: regular rate and regular rhythm RATE: regular rate RHYTHM: regular rhythm GI: COMMON NORMALS: Soft to palpation AUSCULTATION: Yes normoactive bowel sounds PALPATION: Yes Soft to palpation and Yes Tenderness to palpation present (GI) (Generalized) : COMMON NORMALS: Yes no CVA tenderness BLADDER/KIDNEY EXAM: Yes no CVA tenderness Back/Pelvis: COMMON NORMALS: no CVA tenderness Extremity: COMMON NORMALS: no pedal edema Neuro: SENSORIUM/ORIENTATION: Yes alert Skin: COMMON NORMALS: turgor normal GENERAL SKIN EXAM: turgor normal Course ED course: 2112, reviewed patient with Dr. Avina who recommended consulting surgery and admitting patient. Discussed with patient who agreed to plan. 2133, discussed with Dr. Cohen, surgeon on-call. He agreed to consult on patient and see him in the morning. Vital Signs: Vital signs: Vital Signs Temperature 98.9 F 06/08/22 18:08 Pulse Rate 95 06/08/22 21:42 Respiratory Rate 16 06/08/22 21:42 Blood Pressure 136/97 06/08/22 21:42 Pulse Oximetry 94 06/08/22 21:42 Oxygen Delivery Me thod Room Air 06/08/22 15:31 MDM - Abdominal Pain Medical Decision Making 42-year-old male patient comes in today with mid abdominal pain. Patient reports symptoms for last 2 to 3 days. Patient appears nontoxic. On exam patient's abdomen is soft with some normal active bowel sounds. Patient does have some mid abdominal tenderness that is nonguarding or rebound related. Differential diagnosis includes but not limited to gastritis, pancreatitis, gallbladder disease, constipation, diverticulitis. On labs lipase was 256. Remainder of labs were unremarkable. Patient does have some mild leukocytosis at 10.9. CT of the abdomen pelvis was ordered that was significant for some mild acute pancreatitis and severe colitis. I reviewed this with Dr. Avina who recommended consultation with surgeon and admission to hospitalist. Dr. Rosalia gloria was notified and agreed to evaluate patient in the morning for further recommendations of treatment. Dr. Espinal was consulted for hospitalist admission. Patient was started on Zosyn and IV fluids. Lab Data 06/08/22 15:16 06/08/22 15:16 Labs/Radiology: Radiology Impressions Abdomen/Pelvis CT 06/08/22 19:08 IMPRESSION: 1. Findings consistent with severe colitis in the distal ascending colon and hepatic flexure. Pneumatosis at the hepatic flexure, findings are concerning for a possible ischemic colitis. Recommend clinical correlation. 2. Changes consistent with focal mild acute pancreatitis involving the head of the pancreas. No pancreatic necrosis. Findings suggesting a small pseudocyst in the head of the pancreas. 3. Diffuse, mild wall thickening of the bladder. In the correct clinical setting, this may suggest cystitis. Recommend correlation with laboratory findings. Alternatively, this may be secondary to chronic outlet obstruction. 4. Findings consistent with cirrhosis and mild portal hypertension with small volume ascites. 5. Incidental/nonacute findings are listed in the report. ADDENDUM: 06/08/222108 THIS REPORT CONTAINS FINDINGS THAT MAY BE CRITICAL TO PATIENT CARE. The findings were verbally communicated via telephone conference with KING HARRINGTON at 9:08 PM CDT on 06/08/2022. The findings were acknowledged and understood. Laboratory Results WBC 10.9 10^3/uL (4.0-10.0) H 06/08/22 15:16 RBC 4.64 10^6/uL (4.1-5.3) 06/08/22 15:16 Hgb 14.6 g/dL (11.7-16.6) 06/08/22 15:16 Hct 45.1 % (42.0-52.0) 06/08/22 15:16 MCV 97.2 fl (80-94) H 06/08/22 15:16 MCH 31.5 pg (28.0-34.0) 06/08/22 15:16 MCHC 32.4 g/dL (30.0-36.0) 06/08/22 15:16 RDW 13.2 % (12.1-15.1) 06/08/22 15:16 Plt Count 244 10^3/cmm (130-400) 06/08/22 15:16 MPV 9.2 fL (7.4-10.4) 06/08/22 15:16 Neut % (Auto) 69.9 % 06/08/22 15:16 Lymph % (Auto) 15.0 % 06/08/22 15:16 [place] % (Auto) 8.7 % 06/08/22 15:16 Eos % (Auto) 5.1 % 06/08/22 15:16 Baso % (Auto) 0.7 % 06/08/22 15:16 Neut # (Auto) 7.62 10^3/uL (1.8-7.7) 06/08/22 15:16 Lymph # (Auto) 1.6 10^3/uL (0.8-4.8) 06/08/22 15:16 [place] # (Auto) 1.0 10^3/uL (0.2-0.9) H 06/08/22 15:16 Eos # (Auto) 0.6 10^3/uL (0.0-0.8) 06/08/22 15:16 Baso # (Auto) 0.1 10^3/uL (0.0-0.1) 06/08/22 15:16 Nucleated RBC % (auto) 0 % 06/08/22 15:16 Nucleated RBCs # 0.0 /100WBC 06/08/22 15:16 Sodium 136 mmol/L (136-145) 06/08/22 15:16 Potassium 3.8 mmol/L (3.5-5.1) 06/08/22 15:16 Chloride 99 mmol/L (98-107) 06/08/22 15:16 Carbon Dioxide 23 mmol/L (22-29) 06/08/22 15:16 Anion Gap 17.8 (5-19) 06/08/22 15:16 BUN 8 mg/dL (6-20) 06/08/22 15:16 Creatinine 0.6 mg/dL (0.7-1.2) L 06/08/22 15:16 GFR Calculation 148.5 mL/min (90-130) H 06/08/22 15:16 Glucose 90 mg/dL (65-115) 06/08/22 15:16 Calculated Osmolality 280 mOsm/kg (285-295) L 06/08/22 15:16 Lactate 0.8 mmol/L (0.5-2.2) 06/08/22 19:20 Calcium 8.7 mg/dL (8.5-10.5) 06/08/22 15:16 Total Bilirubin 0.7 mg/dL (0.15-1.2) 06/08/22 15:16 AST 15 U/L (0-40) 06/08/22 15:16 ALT 7 U/L (0-41) 06/08/22 15:16 Alkaline Phosphatase 86 U/L (40-130) 06/08/22 15:16 Total Protein 6.5 g/dL (6.6-8.7) L 06/08/22 15:16 Albumin 3.7 g/dL (3.5-5.2) 06/08/22 15:16 Globulin 2.8 g/dL (1.3-4.6) 06/08/22 15:16 Triglycerides 84 mg/dL (0-150) 06/08/22 19:20 Lipase 256 U/L (13-60) H 06/08/22 15:16 Urine Color Yellow (Yellow) 06/08/22 20:31 Urine Appearance Clear (CLEAR) 06/08/22 20:31 Urine pH 7 (5-7) 06/08/22 20:31 Ur Specific [place] 1.000 (1.005-1.030) L 06/08/22 20:31 Urine Protein 1+ (Negative) H 06/08/22 20:31 Urine Glucose (UA) Norm (Normal) 06/08/22 20:31 Urine Ketones 2+ (Negative) H 06/08/22 20:31 Urine Blood Neg (Negative) 06/08/22 20:31 Urine Nitrate Negative (Negative) 06/08/22 20:31 Urine Bilirubin Neg (Negative) 06/08/22 20:31 Urine Urobilinogen 1 mg/dL (Negative) H 06/08/22 20:31 Ur Leukocyte Esterase Negative (Negative) 06/08/22 20:31 Urine RBC None /hpf (0-2) 06/08/22 20:31 Urine WBC None /hpf (0-5) 06/08/22 20:31 Ur Squamous Epith Cells None /hpf (0-5) 06/08/22 20:31 Amorphous Sediment Not Reportable 06/08/22 20:31 Urine Bacteria None /hpf (NONE) 06/08/22 20:31 Urine Mucus 1+ /hpf 06/08/22 20:31 Discharge Plan Discharge Condition: Stable Prescriptions: No Action lisinopril 20 mg tablet 20 mg PO DAILY Qty: 30 1RF Vitamin B-1 (mononitrate) 100 mg Tablet 100 mg PO DAILY 30 Days Qty: 30 1RF aripiprazole 10 mg tablet 10 mg PO DAILY 30 Days Qty: 30 1RF Coding Level of Care Code ED Wire Splicer for Chg Barb
[2022-06-08] MEDS: ondansetron 2 mg/ML SDV 2 mL 4 MG IVP (19:25)
[2022-06-08] MEDS: fentaNYL 50 mcg/mL INJ 2mL IVP ×2 (19:26→22:01)
[2022-06-08] MEDS: sodium chloride 0.9% 500 ML 999 ML IV (19:45)
[2022-06-08 19:51] LABS: Triglycerides 84 mg/dL (0-150)
[2022-06-08] MEDS: iohexol 350 mg/mL 500 mL Btl (per mL) IV ×2 (19:51→22:37)
[2022-06-08 21:11] LABS: Add Urine Microscopic? YES; Bilirubin Urine Neg (Negative); Blood Urine Neg (Negative); Glucose Urine UA Norm (Normal); Ketones Urine 2+ (Negative); Leukocyte Esterase Urine Negative (Negative); Nitrate Urine Negative (Negative); Protein Urine 1+ (Negative); Urine Appearance Clear (CLEAR); Urine Color Yellow (Yellow); Urobilinogen Urine 1 mg/dL (Negative); pH Urine 7 (5-7)
[2022-06-08 21:12] LABS: Add Urine Culture? No; Mucus Urine 1+ /hpf
[2022-06-08 21:40] LABS: Lactate (Lactic Acid level) 0.8 mmol/L (0.5-2.2)
[2022-06-08] MEDS: piperacillin-tazobactam 3.375 GM in sodium chloride 0.9% (plus) 50 ML IV (21:50)
--- NOTE | 2022-06-08 22:13 | CTR_ITS ---
PROCEDURE INFORMATION: Exam: CTA Abdomen and Pelvis With Contrast Exam date and time: 06/08/2022 10:33 PM Age: 42 years old Clinical indication: Other: Ischemia; Patient HX: Concern for ishemic colitis specifically to region of hepatic flexure as noted on prior abd CT this evening. ; Additional info: R/O ischemic bowel TECHNIQUE: Imaging protocol: Computed tomographic angiography of the abdomen and pelvis with contrast. 3D rendering (Not supervised by radiologist): MIP and/or 3D reconstructed images were created by the technologist. Radiation optimization: All CT scans at this facility use at least one of these dose optimization techniques: automated exposure control; mA and/or kV adjustment per patient size (includes targeted exams where dose is matched to clinical indication); or iterative reconstruction. Contrast material: OMNI 350; Contrast volume: 100 ml; Contrast route: INTRAVENOUS (IV); REPORTING DATA: Count of CT and Cardiac NM exams in prior 12 months: This patient has received 0 known CTs and 0 known cardiac nuclear medicine studies in the 12 months prior to the current study. COMPARISON: CT abdomen pelvis w con* [id number] 06/08/2022 7:51 PM RADIATION DOSE METRICS: Total DLP (mGy-cm): 654.89 FINDINGS: Lungs: Bibasilar atelectasis. Aorta: No aortic aneurysm. No aortic dissection. Celiac trunk and mesenteric arteries: No occlusion or significant stenosis. Renal arteries: No occlusion or significant stenosis. Right iliac arteries: No occlusion or significant stenosis. Left iliac arteries: No occlusion or significant stenosis. Liver: Hepatic steatosis. Cirrhotic liver suspected. Gallbladder and bile ducts: See Pancreas finding. Pancreas: 13 mm low-density structure in the pancreatic head may reflect a dilated portion of the pancreatic duct or common bile duct, similar to prior exam, consider further evaluation with MRCP, an underlying mass may also be a consideration. Spleen: Unremarkable. No splenomegaly. Adrenal glands: Unremarkable. No mass. Kidneys and ureters: Unremarkable. No solid mass. No hydronephrosis. Stomach and bowel: Ascending and proximal transverse colon wall thickening with surrounding edema suggestive of a colitis. Appendix: No evidence of appendicitis. Intraperitoneal space: Moderate ascites in the abdomen. Lymph nodes: Scattered prominent subcentimeter short axis mesenteric lymph nodes throughout the abdomen, nonspecific. Urinary bladder: Unremarkable. No mass. Reproductive: Unremarkable as visualized. Bones/joints: Chronic bilateral L5 pars interarticularis defects. Soft tissues: Unremarkable. CT/CT angio abdomen pelvis [id number] IMPRESSION: 1. Ascending and proximal transverse colon wall thickening with surrounding edema suggestive of a colitis. 2. Bibasilar atelectasis. 3. Hepatic steatosis. 4. Cirrhotic liver suspected. 5. Moderate ascites in the abdomen. 6. Chronic bilateral L5 pars interarticularis defects. 7. 13 mm low-density structure in the pancreatic head may reflect a dilated portion of the pancreatic duct or common bile duct, similar to prior exam, consider further evaluation with MRCP, an underlying mass may also be a consideration. 8. Scattered prominent subcentimeter short axis mesenteric lymph nodes throughout the abdomen, nonspecific.
--- NOTE | 2022-06-08 22:43 | PM.HP ---
Providers/Chief Complaint Admitting Physician: Joana Grubbs MD Chief Complaint: abd pain History of Present Illness Chava Jules is a 42 year old male past medical history of insomnia, hallucinations requiring psychiatric admission in 2020, psychosis presented to the hospital today with complaint of abdominal pain that has been going on for the last 3 weeks. He did he states he saw Dr. Arnaud Grant for abdominal pain. Abdominal x-ray was done and was deemed to be constipated. He states that he was treated for constipation and felt better and felt that the pain improved however the original abdominal pain that he was having for weeks did not improve. He states x-ray pain in a bandlike pattern that starts at the bellybutton and spreads like a spiderweb to both sides of his abdomen . States at times his abdomen will feel sore but at this time there will feel fine. He has been having normal bowel movements and had 2 today. He states that he does not believe he is lactose intolerant however sometimes if he drinks milk at nighttime he will have loose stools. He has never been officially diagnosed with an irritable bowel syndrome or any other abdominal conditions. Denies a fever, diarrhea, nausea, vomiting. States that lower abdomen has constant pain at times. He states that later fluids soups and bland food tends to be better for him as opposed to meet. Denies any epigastric pain or pain radiating to the back. Denies a history of cancers in the family. Has never had a colonoscopy before. Denies blood in stool, blood in vomitus. States his stool is dark brown. Denies smoking or alcohol use. ED course: Blood pressure 136/97 pulse rate 16, pulse 95, temperature 98.9, saturating 94% on room air. CT abdomen pelvis was done which showed 1. ? Findings consistent with severe colitis in the distal ascending colon and hepatic flexure. Pneumatosis at the hepatic flexure, findings are concerning for a possible ischemic colitis. Recommend clinical correlation. 2. ? Changes consistent with focal mild acute pancreatitis involving the head of the pancreas. No pancreatic necrosis. Findings suggesting a small pseudocyst in the head of the pancreas. 3. ? Diffuse, mild wall thickening of the bladder. In the correct clinical setting, this may suggest cystitis. Recommend correlation with laboratory findings. Alternatively, this may be secondary to chronic outlet obstruction. 4. ? Findings consistent with cirrhosis and mild portal hypertension with small volume ascites. 5. ? Incidental/nonacute findings are listed in the report. Case was discussed with general surgery by ER physician who recommended IV fluids and antibiotics at this time and to manage conservatively. Patient will be evaluated by general surgery in the morning. He was given a dose of Zosyn in the ER. Lipase 25. Mild leukocytosis 10.9, hemoglobin 14.6, lactic acid 0.8. UA negative. Creatinine 0.6, potassium 3.8. Medications/Allergies Home Medications Medication Instructions Recorded Confirmed Last Taken Type thiamine mononitrate (vit B1) 100 100 mg PO DAILY 30 days #30 tabs 05/14/20 10/29/20 Unknown Rx mg tablet (Vitamin B-1 (mononitrate)) aripiprazole 10 mg tablet 10 mg PO DAILY 30 days #30 tabs 07/07/20 10/29/20 Unknown Rx lisinopril 20 mg tablet 20 mg PO DAILY #30 tabs 07/07/20 10/29/20 Unknown Rx Allergies Allergy/AdvReac Type Severity Reaction Status Date / Time No Known Allergies Allergy Verified 10/29/20 15:02 PFSH Acute PFSH: Medical History Insomnia Surgical History No pertinent past surgical history Family History Other Chronic kidney disease (CKD) Diabetes Social History Smoking and tobacco status: never smoked Alcohol intake: never Substance/Drug Use: never Vitals/I&O/Wt Last Vital Signs Temp 98.9 F 06/08/22 18:08 Pulse 83 06/08/22 22:05 Resp 16 06/08/22 22:05 BP 138/87 06/08/22 22:05 Pulse Ox 96 06/08/22 22:05 O2 Del Method Room Air 06/08/22 22:05 06/08/22 06/08/22 06/08/22 06:59 14:59 22:59 Intake Total 550 / 550 Balance 550 / 550 Weight last 48 hrs Weight 86.636 kg Physical Exam Narrative: General: Alert oriented x3, patient seen laying in bed appearing comfortable at this time. HEENT: Normocephalic, atraumatic, EOMI, Cardio: Regular rate rhythm, normal S1-S2 Respiratory: Good bilateral air entry, no wheezes no rhonchi appreciated GI: Abdomen soft, nontender, nondistended, bowel sounds +, benign abdominal exam. Mild pain to deep palpation in flank areas. Behavior: Appropriate and cooperative Extremities: No edema noted Data 06/09/22 04:45 06/08/22 15:16 A&P Assessment and plan (1) Benign essential HTN: (2) Nicotine dependence, cigarettes, with unspecified nicotine-induced disorders: Plan #Severe colitis distal ascending:, Pneumatosis at hepatic flexure? #Rule out ischemic colitis #Focal mild acute pancreatitis involving head of pancreas? #Diffuse mild wall thickening of bladder #Mild portal hypertension, cirrhosis? #History of acute psychosis, alcohol use disorder, hallucinations in the past ? Lactic acid 0.8, abdominal exam is benign, patient is nontoxic-appearing however pelvis to have a suspicion of pneumatosis at hepatic flexure and possibility of ischemic colitis. ? Check CT angio abdomen pelvis to rule out ischemia ? Continue on Zosyn, normal saline 125 cc/h ? N.p.o. ? Check hepatitis panel ? We will order MRCP for a.m. ? Serial abdominal exams throughout the night. ? General surgery consulted. Patient evaluated in a.m. ? Continue thiamine 100 IV daily ? Hold lisinopril ? Patient would benefit from a colonoscopy as an outpatient once acute illness resolves. ? We will need to confirm his home medications ? Had an extensive discussion with the patient regarding his CT imaging findings. Given ample time to patient and answered all his questions. -RN updated ? Check labs in AM. ? Monitor in ICU tonight. If patient remains stable may transfer out of ICU in a.m. Full code SCDs, heparin subcu. ? Attestations Medical Necessity Statement*: Greater than 2 midnight stay for management of severe colitis Other Coding Information Focused coding review requested Diagnoses Benign essential HTN I10 Nicotine dependence, cigarettes, with unspecified nicotine-induced disorders F17.219
[2022-06-08] MEDS: heparin 5,000 unit/mL INJ 1 mL 5000 UNIT SUBCUT (23:23)
[2022-06-08] MEDS: lactated ringers 1,000 ML 150 ML IV (23:23)
[2022-06-09] VITALS (55 sets, daily range): BP systolic 128–150; BP diastolic 83–101; PULSE 70–115; RESP 16–29; TEMP 36.6–37.1; O2SAT 93–98
--- NOTE | 2022-06-09 00:25 | MR_ITS ---
WS: [id number] MRCP (MAGNETIC RESONANCE CHOLANGIOPANCREATOGRAPHY) HISTORY: cbd dilation, abnormality at pancreatic head COMPARISON: 06/08/2022 TECHNIQUE: Multiple sequences are performed to evaluate the intra and extrahepatic ducts. Small amount of ascites within the peritoneal cavity. Ascites surrounds the liver with a smaller amou nt adjacent to the spleen. Fluid extends along the paracolic gutters and into the small bowel mesente ry. Greater amount of fluid in the RIGHT upper quadrant and in the root of the small bowel mesentery. Liver and spleen are normal size. No bile duct dilatation. Common bile duct is normal at 4 mm. No lili ling defect. Normally distended gallbladder. No intraluminal filling defects. No wall thickening. The re is fluid adjacent to the gallbladder but there is no wall thickening of the gallbladder. Again noted is submucosal thickening of the duodenum and also the visualized ascending and transverse colon. There is marked wall thickening with narrowing of the colonic lumen. This was described previ ously. Pancreatic head is mildly enlarged and edematous. There is inflammation surrounding the pancreatic he ad. Cystic mass of the pancreatic head is not identified by MRI. There is a small amount of fluid pos terior and inferior to the pancreatic head. Pancreatic duct is not dilated. No pleural effusions. MR/MR MRCP [id number] IMPRESSION: 1. No common bile duct or pancreatic duct dilatation. 2. Significant inflammatory process in the RIGHT upper abdomen involving the a scending and transverse colon and the duodenum. Mild inflammation and enlargeme nt involving the pancreatic head. No masses are identified or pseudocyst identi fied by MRI. Suspect changes of colitis and mild pancreatitis involving the simmons creatic head. 3. Recommend short-term dedicated pancreatic CT follow-up as patient's conditi on resolves to better evaluate the pancreatic head. No mass identified. Follow- up in 6-8 weeks recommended. 4. Small amount of ascites. 5. Negative gallbladder. No stones identified. There is adjacent fluid which i s probably ascites and not acute cholecystitis.
[2022-06-09] MEDS: piperacillin-tazobactam 3.375 GM in sodium chloride 0.9% (plus) 50 ML IV ×3 (03:43→20:08)
[2022-06-09 04:56] LABS: Basophils # 0.1 10^3/uL (0.0-0.1); Basophils % 0.8 %; Eosinophils # 0.8 10^3/uL (0.0-0.8); Eosinophils % 8.7 %; Hemoglobin 12.7 g/dL (11.7-16.6); Lymphocytes # 1.4 10^3/uL (0.8-4.8); Lymphocytes % 15.2 %; Mean Corpuscular HGB Conc 32.6 g/dL (30.0-36.0); Mean Corpuscular Volume 95.1 fl (80-94); Monocytes # 0.9 10^3/uL (0.2-0.9); Monocytes % 9.9 %; Neutrophils # 5.86 10^3/uL (1.8-7.7); Neutrophils % 65.2 %; Nucleated Red Blood Cells % 0 %; Platelet Count 243 10^3/cmm (130-400); Red Cell Distribution Width 13.2 % (12.1-15.1)
[2022-06-09 05:11] LABS: INR 1.33 (0.8-1.2)
[2022-06-09 05:20] LABS: Alanine Aminotransferase < 5 U/L (0-41); Alkaline Phosphatase 59 U/L (40-130); Anion Gap 13.9 (5-19); Aspartate Amino Transferase 10 U/L (0-40); Blood Urea Nitrogen 6 mg/dL (6-20); Calcium 8.1 mg/dL (8.5-10.5); Carbon Dioxide 23 mmol/L (22-29); Chloride 104 mmol/L (98-107); Globulin 2.2 g/dL (1.3-4.6); Glomerular Filtration Rate 148.5 mL/min (90-130); Glucose 81 mg/dL (65-115); Magnesium 1.9 mg/dL (1.7-2.3); Osmolality Calculated 281 mOsm/kg (285-295); Potassium 3.9 mmol/L (3.5-5.1); Sodium 137 mmol/L (136-145); Total Bilirubin 0.7 mg/dL (0.15-1.2); Total Protein 5.2 g/dL (6.6-8.7)
[2022-06-09 05:21] LABS: Lactic Sepsis W/Reflex 0.5 mmol/L (0.5-2.2)
[2022-06-09] MEDS: lactated ringers 1,000 ML 150 ML IV ×2 (06:41→17:38)
[2022-06-09] MEDS: pantoprazole 40 mg SDV IVP (08:41)
[2022-06-09] MEDS: oxyCODONE 5 mg IR Tab/Cap PO ×3 (08:58→20:09)
--- NOTE | 2022-06-09 10:00 | PM.CONSULT ---
Providers/Reason For Consult Consulting Physician/Specialty*: Hospitalist Reason for Consult*: Colitis Attending Physician: Bernabe Sim MD History of Present Illness History of Present Illness Chava Jules is a 42 year old male has been diffuse. The patient has seen another provider because of the pain. He was thought to be constipated. The patient was given laxatives. The patient was not given antibiotics. Patient stated the pain got somewhat better but never completely resolved. The pain is not associated with nausea or vomiting. The pain is not associated with diarrhea or constipation. The patient has not had any recent travel. 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 The patient has denied fever or chills. The patient states that he does drink. He states that he has stopped drinking over the last couple years. He does smoke. Review of Systems General: Reports: 10 or more systems reviewed and unremarkable except in HPI and below Medications/Allergies Home Medications Medication Instructions Recorded Confirmed Last Taken Type omeprazole 40 mg capsule,delayed 40 mg PO DAILY 06/09/22 06/09/22 Unknown History release Allergies Allergy/AdvReac Type Severity Reaction Status Date / Time No Known Allergies Allergy Verified 10/29/20 15:02 Current Medications Generic Name Dose Route Start Last Admin Trade Name Freq PRN Reason Stop Dose Admin Heparin Sodium (Porcine) 5,000 unit 06/08/22 22:45 06/08/22 23:23 Heparin 5,000 Unit/Ml Inj 1 Ml SUBCUT 5,000 unit Q12H REYNOLD Administration Lactated Ringer's 1,000 mls @ 150 mls/hr 06/08/22 22:45 06/09/22 06:41 Lactated Ringers IV 150 mls/hr .[id number] REYNOLD Administration Piperacillin Sod/Tazobactam 50 mls @ 12.5 mls/hr 06/09/22 04:00 06/09/22 07:45 Sod 3.375 gm/ Sodium Chloride IV Infused Q8H REYNOLD Infusion Oxycodone HCl 5 mg 06/09/22 08:49 06/09/22 08:58 Oxycodone 5 Mg Ir Tab/Cap PO 06/13/22 22:00 5 mg Q4H PRN Administration MODERATE PAIN Pantoprazole Sodium 40 mg 06/09/22 09:00 06/09/22 08:41 Pantoprazole 40 Mg Sdv IVP 40 mg DAILY REYNOLD Administration PFSH Acute PFSH: Medical History Insomnia Surgical History No pertinent past surgical history Family History Other Chronic kidney disease (CKD) Diabetes Social History Smoking and tobacco status: never smoked Alcohol intake: never Substance/Drug Use: never Vitals/I&O/Wt Last Vital Signs Temp 98.7 F 06/09/22 08:00 Pulse 115 H 06/09/22 09:42 Resp 23 H 06/09/22 08:58 BP 135/91 06/09/22 08:00 Pulse Ox 98 06/09/22 09:42 O2 Del Method Room Air 06/09/22 09:42 06/08/22 06/09/22 06/09/22 22:59 06:59 14:59 Intake Total 550 / 550 1000 / 1550 50 / 50 Output Total 350 / 350 Balance 550 / 550 650 / 1200 50 / 50 Weight last 48 hrs Weight 187 lb 6.287 oz Weight 187 lb 2.759 oz Weight 191 lb Physical Exam Narrative: Generally: No acute distress HEENT is normocephalic atraumatic Neck: free range of motion and nontender. The patient has no masses. There is no thyromegaly. Lungs: Clear to auscultation and percussion Heart: Somewhat tachycardic rate and rhythm without murmurs. No S3 or S4. There is no rubs clicks or JVD noted Abdomen: Soft, nondistended, mild tenderness in the midepigastric region. There is no rebound tenderness. There are no masses that I can appreciate. There is no hepatosplenomegaly. There is no costovertebral angle tenderness. Pelvis: Stable to AP meter compression Extremities: Is normal deformities or point tenderness suggestive of fracture. The patient has good cap refill in his hands and feet Neurologic: The patient is awake, alert, oriented x3. The patient's Jose Coma Scale is 15. The patient moves all 4 extremities without difficulty. The patient sensations intact to light touch throughout. Data 06/09/22 04:45 06/09/22 04:45 Micro: Microbiology 06/08/22 23:02 Blood Culture - Preliminary Blood SPECIMEN COLLECTED 06/08/22 22:59 Blood Culture - Preliminary Blood SPECIMEN COLLECTED Attestation for Other Data: I personally reviewed and interpreted the following: (All labs and CT scans been reviewed) A&P Assessment and plan (1) Colitis: The exact etiology of the patient's colitis is unclear. It is probably infectious. Would add vancomycin to the patient's antibiotics so that would have better Enterococcus coverage. I do not believe the patient has ischemic colitis. The patient's SMA as well as celiac axis are wide open. There is no evidence of atherosclerotic disease. The patient CT scan is somewhat concerning. It is also interesting that the patient has an elevated lipase. This would suggest the patient may have some degree of pancreatitis. We will continue to hydrate the patient. We will follow this patient with you. Coding Level of Care Code 69109 Diagnoses Colitis K52.9
--- NOTE | 2022-06-09 10:17 | PC.PHAR ---
PHARMACY TO DOSE CONSULT - VANCOMYCIN With the patient's current vitals and laboratory results, his dose was calculated at 1250 mg every 8 hours with a predicted peak of 33.6 mcg/ml and a trough of 15.34. Pharmacy will continue to monitor the patient's renal function and make adjustments as necessary. Please let us know if there is anything else that we can help with. Thanks, Madhu Aldana, Pharm. D
--- NOTE | 2022-06-09 11:23 | PM.PN ---
Subjective Subjective: Patient reports continued abdominal pain. He rates it 4 out of 10. Reports pain is located in bilateral lower quadrants. Denies any bowel movements overnight. Reports symptoms have been present for about a month. Denies nausea or emesis. Feels he could tolerate limited clear liquids. Denies known family history of IBD. Medications: Reviewed: Yes Vitals/I&O/Wt Last Vital Signs Temp 98.7 F 06/09/22 08:00 Pulse 115 H 06/09/22 09:42 Resp 23 H 06/09/22 08:58 BP 135/91 06/09/22 08:00 Pulse Ox 98 06/09/22 09:42 O2 Del Method Room Air 06/09/22 09:42 06/08/22 06/09/22 06/09/22 22:59 06:59 14:59 Intake Total 550 / 550 1000 / 1550 100 / 100 Output Total 350 / 350 600 / 600 Balance 550 / 550 650 / 1200 -500 / -500 Weight last 48 hrs Weight 85 kg Weight 84.9 kg Weight 86.636 kg Physical Exam Narrative: General: Patient is awake. Alert. Head: Normocephalic. Atraumatic. EOM intact. Neck: No JVD. Cardiovascular: No gallops. Systolic murmur. No rub. No gallop. Lungs: Clear to auscultation, no use of accessory muscles, no crackles or wheezes. Skin: No jaundice. No rashes. Abdomen: Normal bowel sounds, abdomen soft. Tender in lower quadrants. No guarding present. Genito Urinary: Genital exam not performed since complaints not related. Rectal: Rectal exam not performed since no symptoms indicated blood loss. Extremities: No cyanosis or clubbing. Musculoskeletal: No swollen or erythematous joints. Neurological: Moves all 4 extremities. No myoclonus. Data 06/09/22 04:45 06/09/22 04:45 Micro: Microbiology 06/08/22 23:02 Blood Culture - Preliminary Blood SPECIMEN COLLECTED 06/08/22 22:59 Blood Culture - Preliminary Blood SPECIMEN COLLECTED A&P Assessment and plan (1) Colitis: Continue Zosyn Continue vancomycin, pharmacy to dose Continue IV fluids General surgery consultation Analgesics as needed CT imaging reviewed Supportive care (2) Pancreatitis: Continue IV fluids Advance to clear liquid diet Analgesics as needed MRCP ordered (3) Benign essential HTN: Monitor blood pressure, only slightly elevated currently (4) Nicotine dependence, cigarettes, with unspecified nicotine-induced disorders: Would benefit from cessation of nicotine (5) Alcohol use disorder: Monitor for signs and symptoms of withdrawal Plan DVT ppx: Low risk Code status: Full Code Attestations Medical Necessity Statement*: Patient requires ongoing hospitalization for treatment of severe colitis including iv fluids and iv antibiotics. Coding Level of Care Code Acute Code for [facility] Fwd Diagnoses Colitis K52.9 Pancreatitis K85.90 Benign essential HTN I10 Nicotine dependence, cigarettes, with unspecified nicotine-induced disorders F17.219 Alcohol use disorder F10.90
[2022-06-09] MEDS: vancomycin 1,250 MG/250 ML PIGGYBACK 250 MG IV (12:24)
[2022-06-09] MEDS: lactulose oral liq 20 gm/30 mL UDC 30 GM PO (12:32)
[2022-06-09] MEDS: heparin 5,000 unit/mL INJ 1 mL 5000 UNIT SUBCUT ×2 (12:32→23:10)
--- NOTE | 2022-06-09 12:41 | PC.NURSE ---
Medication delay relate to care of 2 other critical patients and patient recent ly completed MRI.
[2022-06-09] MEDS: vancomycin 1,250 MG/250 ML PIGGYBACK 166 MG IV (18:32)
--- NOTE | 2022-06-09 19:28 | PC.NURSE ---
Shift summary: Pt denied nausea today. He did have abdominal pain 4 out of 0-10 scale. He received Oxy IR twice this sift for his pain, medication was effective. he was able to consume all of his clear liquid diet without nausea or additional abdominal pain. He was started on vancomycin IV. He had An MRI as a follow-up to his abd CT. Lactulose admin today. He has had 2 loose BMs. He has urinated 5 times this shift, only able to measure the 3 that were in the urinal. His Left AC Iv is a bit leaky at insertion site. Offered to start different IV, pt stated the slight leaking was not bothering him if was ok from nursing viewpoint. Decision to just leave left Ac IV in place this shift.
[2022-06-10] VITALS (11 sets, daily range): BP systolic 121–147; BP diastolic 82–102; PULSE 71–90; RESP 16–24; TEMP 36.6–37.7; O2SAT 94–97
[2022-06-10] MEDS: oxyCODONE 5 mg IR Tab/Cap PO ×2 (00:20→05:44)
[2022-06-10] MEDS: lactated ringers 1,000 ML 150 ML IV ×2 (01:56→08:49)
[2022-06-10] MEDS: vancomycin 1,250 MG/250 ML PIGGYBACK 150 MG IV (01:56)
[2022-06-10 03:48] LABS: Basophils # 0.1 10^3/uL (0.0-0.1); Basophils % 0.8 %; Eosinophils # 0.7 10^3/uL (0.0-0.8); Hematocrit 38.5 % (42.0-52.0); Hemoglobin 12.2 g/dL (11.7-16.6); Lymphocytes # 1.6 10^3/uL (0.8-4.8); Lymphocytes % 21.8 %; Mean Corpuscular HGB Conc 31.7 g/dL (30.0-36.0); Mean Corpuscular Hemoglobin 30.4 pg (28.0-34.0); Mean Platelet Volume 9.1 fL (7.4-10.4); Monocytes # 0.7 10^3/uL (0.2-0.9); Monocytes % 9.7 %; Neutrophils # 4.08 10^3/uL (1.8-7.7); Neutrophils % 57.4 %; Nucleated Red Blood Cells % 0 %; Platelet Count 234 10^3/cmm (130-400); Red Blood Count 4.01 10^6/uL (4.1-5.3); Red Cell Distribution Width 12.8 % (12.1-15.1); White Blood Count 7.1 10^3/uL (4.0-10.0)
[2022-06-10 04:10] LABS: Alanine Aminotransferase < 5 U/L (0-41); Albumin Level 2.8 g/dL (3.5-5.2); Alkaline Phosphatase 53 U/L (40-130); Anion Gap 11.3 (5-19); Aspartate Amino Transferase 9 U/L (0-40); Blood Urea Nitrogen 4 mg/dL (6-20); Calcium 8.3 mg/dL (8.5-10.5); Carbon Dioxide 26 mmol/L (22-29); Chloride 100 mmol/L (98-107); Globulin 2.4 g/dL (1.3-4.6); Glomerular Filtration Rate 148.5 mL/min (90-130); Glucose 82 mg/dL (65-115); Osmolality Calculated 272 mOsm/kg (285-295); Potassium 4.3 mmol/L (3.5-5.1); Sodium 133 mmol/L (136-145); Total Bilirubin 0.5 mg/dL (0.15-1.2); Total Protein 5.2 g/dL (6.6-8.7)
[2022-06-10] MEDS: piperacillin-tazobactam 3.375 GM in sodium chloride 0.9% (plus) 50 ML IV (04:43)
[2022-06-10] MEDS: pantoprazole 40 mg SDV IVP (09:35)
[2022-06-10 10:39] LABS: Vancomycin Trough 12.4 ug/mL (10-15)
[2022-06-10] MEDS: vancomycin 1,250 MG/250 ML PIGGYBACK 250 MG IV (11:10)
--- NOTE | 2022-06-10 14:32 | P.PN_ITS ---
Subjective Subjective: Patient reports persistent abdominal pain. Reports it seems be improving but still exacerbated by any oral intake. He reports he is tolerating limited clear liquids. He is willing to try full liquids but wants to wait on any solids due to fear of pain. Denies fevers, nausea or emesis. Reports good urinary output. Discussed plan of care and he is in agreement. Medications: Reviewed: Yes Vitals/I&O/Wt Last Vital Signs Temp 98.5 F 06/10/22 12:00 Pulse 81 06/10/22 12:00 Resp 17 06/10/22 12:00 BP 141/95 06/10/22 12:00 Pulse Ox 95 06/10/22 12:00 O2 Del Method Room Air 06/10/22 06:05 06/09/22 06/10/22 06/10/22 22:59 06:59 14:59 Intake Total 1930 / 3780 1550 / 5330 2780 / 2780 Output Total 0 / 601 0 / 601 Balance 1930 / 3179 1550 / 4729 2780 / 2780 Weight last 48 hrs Weight 87.543 kg Weight 85 kg Weight 84.9 kg Physical Exam Narrative: General: Patient is awake. Alert. Pleasant. Lying in bed. Head: Normocephalic. Atraumatic. EOM intact. Neck: No JVD. Cardiovascular: No gallops. Systolic murmur. No rub. No gallop. Lungs: Clear to auscultation, no use of accessory muscles, no crackles or wheezes. Skin: No jaundice. No rashes. Abdomen: Normal bowel sounds, tender in lower quadrants. No guarding. Genito Urinary: Genital exam not performed since complaints not related. Rectal: Rectal exam not performed since no symptoms indicated blood loss. Extremities: No cyanosis or clubbing. Musculoskeletal: No swollen or erythematous joints. Neurological: Moves all 4 extremities. No myoclonus. Data 06/10/22 03:37 06/10/22 03:37 Micro: Microbiology 06/08/22 23:02 Blood Culture - Preliminary Blood NEGATIVE TO DATE 06/08/22 22:59 Blood Culture - Preliminary Blood NEGATIVE TO DATE 06/09/22 09:38 Gram Stain - Final Sputum - Expectorated Sputum A&P Assessment and plan (1) Colitis: Discontinue Zosyn and vancomycin Start Augmentin and ciprofloxacin Discontinue IV fluids Monitor oral intake closely, if not satisfactory, will restart IVF Advance to full liquid diet, monitor for worsening condition General surgery consultation Analgesics as needed Supportive care Will need colonoscopy in 6-8 weeks (2) Pancreatitis: Advance to full liquid diet MRCP results reviewed Will need repeat pancreatic imaging in 6-8 weeks (3) Benign essential HTN: Monitor blood pressure (4) Nicotine dependence, cigarettes, with unspecified nicotine-induced disorders: Would benefit from cessation of nicotine (5) Alcohol use disorder: Monitor for signs and symptoms of withdrawal, none so far Plan DVT ppx: Low risk Code status: Full Code Attestations Medical Necessity Statement*: Patient requires ongoing hospitalization for treatment of severe colitis and pancreatitis with serial labs, analgesics, antibiotics, and supportive care. Coding Level of Care Code Acute Code for [facility] Diagnoses Colitis K52.9 Pancreatitis K85.90 Benign essential HTN I10 Nicotine dependence, cigarettes, with unspecified nicotine-induced disorders F17.219 Alcohol use disorder F10.90
[2022-06-10] MEDS: amoxicillin-clav 875-125 mg Tablet 1 TAB PO (17:05)
[2022-06-10] MEDS: ciprofloxacin 500 mg Tablet PO (20:07)
[2022-06-10] MEDS: heparin 5,000 unit/mL INJ 1 mL 5000 UNIT SUBCUT (21:49)
[2022-06-11] VITALS: BP 134/78; PULSE 84; RESP 16; TEMP 37.4; O2SAT 95
[2022-06-11 04:00] VITALS: BP 118/70; PULSE 72; RESP 18; TEMP 37.2; O2SAT 94
[2022-06-11 04:47] LABS: Basophils # 0.1 10^3/uL (0.0-0.1); Basophils % 0.5 %; Eosinophils # 0.6 10^3/uL (0.0-0.8); Eosinophils % 6.3 %; Hemoglobin 13.7 g/dL (11.7-16.6); Lymphocytes # 1.8 10^3/uL (0.8-4.8); Lymphocytes % 18.9 %; Mean Corpuscular HGB Conc 31.9 g/dL (30.0-36.0); Mean Corpuscular Hemoglobin 30.3 pg (28.0-34.0); Mean Corpuscular Volume 95.1 fl (80-94); Mean Platelet Volume 9.3 fL (7.4-10.4); Monocytes # 0.7 10^3/uL (0.2-0.9); Neutrophils # 6.22 10^3/uL (1.8-7.7); Neutrophils % 67.1 %; Nucleated Red Blood Cells % 0 %; Platelet Count 281 10^3/cmm (130-400); Red Blood Count 4.52 10^6/uL (4.1-5.3); Red Cell Distribution Width 12.6 % (12.1-15.1); White Blood Count 9.3 10^3/uL (4.0-10.0)
[2022-06-11 05:07] LABS: Alanine Aminotransferase 7 U/L (0-41); Albumin Level 3.2 g/dL (3.5-5.2); Alkaline Phosphatase 57 U/L (40-130); Aspartate Amino Transferase 12 U/L (0-40); Blood Urea Nitrogen 2 mg/dL (6-20); Calcium 8.6 mg/dL (8.5-10.5); Carbon Dioxide 24 mmol/L (22-29); Chloride 102 mmol/L (98-107); Globulin 2.7 g/dL (1.3-4.6); Glomerular Filtration Rate 148.5 mL/min (90-130); Glucose 102 mg/dL (65-115); Osmolality Calculated 276 mOsm/kg (285-295); Phosphorus 3.2 mg/dL (2.5-4.5); Sodium 135 mmol/L (136-145); Total Bilirubin 0.4 mg/dL (0.15-1.2); Total Protein 5.9 g/dL (6.6-8.7)
[2022-06-11 08:00] VITALS: BP 139/98; PULSE 107; RESP 17; TEMP 36.6; O2SAT 96
[2022-06-11] MEDS: amoxicillin-clav 875-125 mg Tablet 1 TAB PO (08:44)
[2022-06-11] MEDS: pantoprazole DR 40 mg Tablet PO (08:44)
[2022-06-11] MEDS: ciprofloxacin 500 mg Tablet PO (08:44)
[2022-06-11] MEDS: heparin 5,000 unit/mL INJ 1 mL 5000 UNIT SUBCUT (10:10)
[2022-06-11 12:00] VITALS: BP 135/90; PULSE 83; RESP 16; TEMP 37.1; O2SAT 97
--- NOTE | 2022-06-11 13:26 | PM.DCS ---
Discharge Providers Date of Admission: 06/08/22 22:57 Date of Discharge: June 11, 2022 Attending Provider at Admission: Joana Grubbs MD Attending Provider at Discharge: Bernabe Sim MD Consults: General Surgery Diagnoses at Discharge Discharge Diagnosis (1) Colitis: Status: Acute (2) Pancreatitis: Status: Acute (3) Benign essential HTN: Status: Acute (4) Nicotine dependence, cigarettes, with unspecified nicotine-induced disorders: Status: Acute (5) Alcohol use disorder: Status: Inactive Reason for Visit Reason for Visit: abd pain Hospital Course Hospital Course Chava Jules is a 42-year-old male with a past medical history significant for alcohol use disorder and tobacco use disorder who presented with abdominal pain, found to have severe colitis. Patient treated with IV fluids (vancomycin/Zosyn) and broad spectrum antibiotics. General surgery consulted and followed. Symptoms improved. He was transitioned to oral antibiotics (Augmentin/Cipro). Patient also found to have pancreatitis treated with IV fluids and analgesics. Imaging was concerning for enlarged pancreatic head. Patient is to follow up with PCP. He requires repeat pancreatic imaging as well as colonoscopy in 6-8 weeks after his colitis recovers. Patient discharged to home in stable condition. Work note provided. Physical Exam Narrative: General: Patient is awake.? Alert.? Pleasant.? Head:? Normocephalic. Atraumatic. EOM intact. Neck: No JVD. Cardiovascular: No gallops. Systolic murmur.? No rub. No gallop. Lungs: Clear to auscultation, no use of accessory muscles, no crackles or wheezes. Skin: No jaundice. No rashes. Abdomen: Normal bowel sounds, no tenderness? No guarding. Genito Urinary: Genital exam not performed since complaints not related. Rectal: Rectal exam not performed since no symptoms indicated blood loss. Extremities: No cyanosis or clubbing. Musculoskeletal: No swollen or erythematous joints. Neurological: Moves all 4 extremities. No myoclonus. Discharge Data Studies Completed and Pending Completed Studies During Hospitalization Category Date Time Status CT abdomen pelvis w con* [id number] Stat Cat Scan 06/08/22 19:[address] angio abdomen pelvis [id number] Stat Cat Scan 06/08/22 22:13 Completed MR MRCP [id number] Routine MRI 06/09/22 00:25 Completed Pending at discharge Category Date Time Status Blood Culture Stat Lab 06/08/22 23:02 Results Sputum Culture and Gram Stain Stat Lab 06/09/22 09:38 Results Radiology Impressions Abdomen/Pelvis CT 06/08/22 19:08 IMPRESSION: 1. Findings consistent with severe colitis in the distal ascending colon and hepatic flexure. Pneumatosis at the hepatic flexure, findings are concerning for a possible ischemic colitis. Recommend clinical correlation. 2. Changes consistent with focal mild acute pancreatitis involving the head of the pancreas. No pancreatic necrosis. Findings suggesting a small pseudocyst in the head of the pancreas. 3. Diffuse, mild wall thickening of the bladder. In the correct clinical setting, this may suggest cystitis. Recommend correlation with laboratory findings. Alternatively, this may be secondary to chronic outlet obstruction. 4. Findings consistent with cirrhosis and mild portal hypertension with small volume ascites. 5. Incidental/nonacute findings are listed in the report. ADDENDUM: 06/08/222108 THIS REPORT CONTAINS FINDINGS THAT MAY BE CRITICAL TO PATIENT CARE. The findings were verbally communicated via telephone conference with KING HARRINGTON at 9:08 PM CDT on 06/08/2022. The findings were acknowledged and understood. Abdomen/Pelvis CTA 06/08/22 22:13 IMPRESSION: 1. Ascending and proximal transverse colon wall thickening with surrounding edema suggestive of a colitis. 2. Bibasilar atelectasis. 3. Hepatic steatosis. 4. Cirrhotic liver suspected. 5. Moderate ascites in the abdomen. 6. Chronic bilateral L5 pars interarticularis defects. 7. 13 mm low-density structure in the pancreatic head may reflect a dilated portion of the pancreatic duct or common bile duct, similar to prior exam, consider further evaluation with MRCP, an underlying mass may also be a consideration. 8. Scattered prominent subcentimeter short axis mesenteric lymph nodes throughout the abdomen, nonspecific. Cholangiopancreatography MRI 06/09/22 00:25 IMPRESSION: 1. No common bile duct or pancreatic duct dilatation. 2. Significant inflammatory process in the RIGHT upper abdomen involving the ascending and transverse colon and the duodenum. Mild inflammation and enlargement involving the pancreatic head. No masses are identified or pseudocyst identified by MRI. Suspect changes of colitis and mild pancreatitis involving the pancreatic head. 3. Recommend short-term dedicated pancreatic CT follow-up as patient's condition resolves to better evaluate the pancreatic head. No mass identified. Follow-up in 6-8 weeks recommended. 4. Small amount of ascites. 5. Negative gallbladder. No stones identified. There is adjacent fluid which is probably ascites and not acute cholecystitis. Laboratory Results WBC 9.3 10^3/uL (4.0-10.0) 06/11/22 04:32 RBC 4.52 10^6/uL (4.1-5.3) 06/11/22 04:32 Hgb 13.7 g/dL (11.7-16.6) 06/11/22 04:32 Hct 43.0 % (42.0-52.0) 06/11/22 04:32 MCV 95.1 fl (80-94) H 06/11/22 04:32 MCH 30.3 pg (28.0-34.0) 06/11/22 04:32 MCHC 31.9 g/dL (30.0-36.0) 06/11/22 04:32 RDW 12.6 % (12.1-15.1) 06/11/22 04:32 Plt Count 281 10^3/cmm (130-400) 06/11/22 04:32 MPV 9.3 fL (7.4-10.4) 06/11/22 04:32 Neut % (Auto) 67.1 % 06/11/22 04:32 Lymph % (Auto) 18.9 % 06/11/22 04:32 [place] % (Auto) 7.0 % 06/11/22 04:32 Eos % (Auto) 6.3 % 06/11/22 04:32 Baso % (Auto) 0.5 % 06/11/22 04:32 Neut # (Auto) 6.22 10^3/uL (1.8-7.7) 06/11/22 04:32 Lymph # (Auto) 1.8 10^3/uL (0.8-4.8) 06/11/22 04:32 [place] # (Auto) 0.7 10^3/uL (0.2-0.9) 06/11/22 04:32 Eos # (Auto) 0.6 10^3/uL (0.0-0.8) 06/11/22 04:32 Baso # (Auto) 0.1 10^3/uL (0.0-0.1) 06/11/22 04:32 Nucleated RBC % (auto) 0 % 06/11/22 04:32 Nucleated RBCs # 0.0 /100WBC 06/11/22 04:32 PT 16.90 SECONDS (12.1-14.9) H 06/09/22 04:45 INR 1.33 (0.8-1.2) H 06/09/22 04:45 Sodium 135 mmol/L (136-145) L 06/11/22 04:32 Potassium 4.0 mmol/L (3.5-5.1) 06/11/22 04:32 Chloride 102 mmol/L (98-107) 06/11/22 04:32 Carbon Dioxide 24 mmol/L (22-29) 06/11/22 04:32 Anion Gap 13.0 (5-19) 06/11/22 04:32 BUN 2 mg/dL (6-20) L 06/11/22 04:32 Creatinine 0.6 mg/dL (0.7-1.2) L 06/11/22 04:32 GFR Calculation 148.5 mL/min (90-130) H 06/11/22 04:32 Glucose 102 mg/dL (65-115) 06/11/22 04:32 Calculated Osmolality 276 mOsm/kg (285-295) L 06/11/22 04:32 Lactic Acid 0.5 mmol/L (0.5-2.2) 06/09/22 04:45 Lactate 0.8 mmol/L (0.5-2.2) 06/08/22 19:20 Calcium 8.6 mg/dL (8.5-10.5) 06/11/22 04:32 Phosphorus 3.2 mg/dL (2.5-4.5) 06/11/22 04:32 Magnesium 2.0 mg/dL (1.7-2.3) 06/11/22 04:32 Total Bilirubin 0.4 mg/dL (0.15-1.2) 06/11/22 04:32 AST 12 U/L (0-40) 06/11/22 04:32 ALT 7 U/L (0-41) 06/11/22 04:32 Alkaline Phosphatase 57 U/L (40-130) 06/11/22 04:32 Total Protein 5.9 g/dL (6.6-8.7) L 06/11/22 04:32 Albumin 3.2 g/dL (3.5-5.2) L 06/11/22 04:32 Globulin 2.7 g/dL (1.3-4.6) 06/11/22 04:32 Triglycerides 84 mg/dL (0-150) 06/08/22 19:20 Lipase 256 U/L (13-60) H 06/08/22 15:16 Urine Color Yellow (Yellow) 06/08/22 20:31 Urine Appearance Clear (CLEAR) 06/08/22 20:31 Urine pH 7 (5-7) 06/08/22 20:31 Ur Specific [place] 1.000 (1.005-1.030) L 06/08/22 20:31 Urine Protein 1+ (Negative) H 06/08/22 20:31 Urine Glucose (UA) Norm (Normal) 06/08/22 20:31 Urine Ketones 2+ (Negative) H 06/08/22 20:31 Urine Blood Neg (Negative) 06/08/22 20:31 Urine Nitrate Negative (Negative) 06/08/22 20:31 Urine Bilirubin Neg (Negative) 06/08/22 20:31 Urine Urobilinogen 1 mg/dL (Negative) H 06/08/22 20:31 Ur Leukocyte Esterase Negative (Negative) 06/08/22 20:31 Urine RBC None /hpf (0-2) 06/08/22 20:31 Urine WBC None /hpf (0-5) 06/08/22 20:31 Ur Squamous Epith Cells None /hpf (0-5) 06/08/22 20:31 Amorphous Sediment Not Reportable 06/08/22 20:31 Urine Bacteria None /hpf (NONE) 06/08/22 20:31 Urine Mucus 1+ /hpf 06/08/22 20:31 Vancomycin Trough 12.4 ug/mL (10-15) 06/10/22 09:50 Vitals Last Vital Signs Temp 98.7 F 06/11/22 12:00 Pulse 83 06/11/22 12:00 Resp 16 06/11/22 12:00 BP 135/90 06/11/22 12:00 Pulse Ox 97 06/11/22 12:00 O2 Del Method Room Air 06/11/22 04:00 Discharge Plan Discharge Patient Disposition: Home Condition: Stable Prescriptions: New ciprofloxacin HCl 500 mg Tablet 500 mg PO BID@0900,2100 12 Days Qty: 24 0RF amoxicillin-pot clavulanate 875-125 mg Tablet 1 tab PO BID 12 Days Qty: 24 0RF oxycodone 5 mg Tablet 5 mg PO Q4H PRN (Reason: Moderate Pain) 5 Days Qty: 10 0RF Continued omeprazole 40 mg capsule,delayed release(DR/EC) 40 mg PO DAILY Discharge Orders: Discharge Order (Routine); Ordered 06/11/22 Ordered By: Bernabe Sim Referrals: Nima Gutierrez MD [Physician] - 06/17/22 10:00 am Discharge Diet: Advance as tolerated Discharge Activity: Increase activity as tolerated and Limit activity as instructed Patient Instructions: Ciprofloxacin (By mouth), Amoxicillin/Clavulanate Potassium (By mouth), Pancreatitis (DC), Colitis (ED), Opioid Safety Activity Restrictions/Additional Instructions: 1. Take medications as prescribed. 2. Follow up with primary care physcian. 3. Will need repeat pancreatic imaging in 6-8 weeks. 4. Will require colonoscopy in 6-8 weeks. Discharge Attestations Time Spent in Discharge Care*: greater than 30 min Status at Discharge: Overall status at discharge: patient is progressing back to baseline Quality Metrics Clinical Quality Measures [ No reported AMI, CVA or VTE this stay] Coding Level of Care Code Acute Code for Chg Fwd Diagnoses Colitis K52.9 Pancreatitis K85.90 Benign essential HTN I10 Nicotine dependence, cigarettes, with unspecified nicotine-induced disorders F17.219 Alcohol use disorder F10.90
[2022-06-11 15:01] VITALS: BP 135/90; PULSE 83; RESP 16; TEMP 37.1; O2SAT 97
== END 2022-06-11 15:03 | disposition home or self-care (01) | DRG 391 ==
LOC: ER 20:37 → ICU 06-09 08:13 → MEDSURG 06-10 05:45
PROVIDERS: Emergency Medicine; Physician Assistant; Surgery Surgical Critical Care; Admitting Provider Internal Medicine; Emergency Provider Nurse Practitioner Family; Visit Provider Internal Medicine
DX: A09 Infectious gastroenteritis and colitis, unspecified (principal); K85.20 Alcohol induced acute pancreatitis without necrosis or infection; K76.6 Portal hypertension; F10.10 Alcohol abuse, uncomplicated; Y90.9 Presence of alcohol in blood, level not specified; K70.31 Alcoholic cirrhosis of liver with ascites; F17.210 Nicotine dependence, cigarettes, uncomplicated; I10 Essential (primary) hypertension
CPT/HCPCS: 36415; 74174; 74177; 74181; 80053; 80202; 81001; 83605; 83690; 83735; 84100; 84478; 85025; 85610; 87040; 87070; 87205; 96365; 96372; 96375; 96376; 99285; C9113; J1644; J2405; J2543; J3010; J3370; J7040; J7120; Q9967

== ENCOUNTER 2022-07-28 10:03 | Emergency (ER) | payer OTHER, SELFPAY ==
[2022-07-28] VITALS (7 sets, daily range): BP systolic 132–150; BP diastolic 91–111; PULSE 72–87; RESP 16–18; TEMP 36.9; O2SAT 97–100
--- NOTE | 2022-07-28 10:26 | CT_ITS ---
WS: [id number] CT ABDOMEN AND PELVIS WITH CONTRAST HISTORY: epigastric pain, n/v TECHNIQUE: Imaging performed of the abdomen and pelvis with IV contrast. Single phase imaging of the abdomen. Coronal and sagittal reformats are submitted. All CT scans at [facility] use at [address] one of these dose optimization techniques: automated exposure control; mA and/or kV adjustment per patient size (includes targeted exams where dose is matched to clinical indication); or iterative re construction. IV CONTRAST: Omnipaque 350; 100 mL IV. Oral contrast: No DLP: 529.53 mGy.cm COMPARISON: 06/08/2022 Lower thorax: Benign granuloma RIGHT middle lobe. Heart is normal size. No hiatal hernia. Liver/biliary system: Normal size with no intrahepatic dilatation. Common bile duct is not dilated bu t there is mild thickening and enhancement involving the wall at the level of the pancreatic head. Gallbladder: Normal. No gallstones or wall thickening. No pericholecystic fluid. Pancreas: Abnormal appearance of the pancreas. Pancreatic head is enlarged and edematous. There is a large amount of inflammation and fluid surrounding the pancreatic head, uncinate process and neck. Th e extent of the soft tissue inflammation and edema has progressed. There is a area involving the panc reatic head which is less distinct than on the prior study. Additional lucencies in the pancreatic he ad which are probably part of the pancreatic duct or small intrapancreatic pseudocyst developing. The se have progressed since the prior study. There is significant inflammation extends to involve the du odenal C-loop. Spleen: Normal size spleen. No mass or infarct. Adrenal glands: Normal. Right kidney: Normal. Left kidney: Normal. Aorta: Normal. Lymphadenopathy: Small central mesenteric lymph nodes. These are predominantly surrounding the pancre as and extending into the RIGHT lower quadrant. Overall mild improvement since 06/08/2022. Free fluid: There is a small amount of ascites but improved since the prior study. GI tract: Stomach is fluid distended. Beginning in the proximal duodenum there is marked circumferent ial wall thickening with enhancement. In the lumen of the duodenum is a low-attenuation nodule measur ing 14 mm which may be a small lipoma or duodenal ulceration. No choledochoduodenal fistula is eviden t on this examination. There is a long segment of inflammation involving the duodenum. There is an ad ditional area of extensive soft tissue thickening involving the hepatic flexure which was described a lso on the prior study with mild improvement. No GI tract obstruction. Abdominal wall: Unremarkable abdominal wall. No hernia. Pelvis: Small amount of free fluid in the pelvis. Bones: Unremarkable. CT/CT abdomen pelvis w con* [id number] IMPRESSION: 1. Extensive continued inflammatory process centered in the RIGHT upper quadra nt surrounding the pancreas, duodenal C-loop, common bile duct and hepatic flex ure. Some of these changes have improved since 06/08/2022. 2. Persistent soft tissue edema surrounding the pancreatic head with a few low cystic areas which may be pancreatic pseudocysts which have progressed since t he prior study. Focal area involving the pancreatic head where there is loss of the normal architecture suggests this may be an area of ischemia. No hemorrhag ic necrosis. 3. There is significant soft tissue inflammation involving the ascending colon and the duodenal C-loop without significant improvement. No free air or obstru ction. 4. Numerous mesenteric lymph nodes in the RIGHT upper quadrant probably reacti ve. 5. Common bile duct is not dilated but the wall is enhancing suggesting ongoin g cholangitis. 6. Low-attenuation nodule measuring 14 mm in the duodenal C-loop. Lipoma versu s ulceration. Notified VINCENZO Rico at 07/28/2022 11:36 AM. Not available for consult at [facility] s time.
--- NOTE | 2022-07-28 10:28 | ED_ITS ---
Documented by User: VINCENZO Rico 07/28/22 15:13 HPI - Nausea/Vomiting/Diarrhea General: Chief complaint: Nausea/Vomiting/Diarrhea Stated complaint: n/v, upper abd pain Time Seen by Provider: 07/28/22 10:04 History of Present Illness: Pt is a 42 y/o male that comes to the ED with epigastric pain, n/v. Symptoms started last night. Pt rates his abdominal pain a 6 out of 10. Pain is located in the epigastric region and he denies any radiation or migration of pain. He has had abdominal pain in the past, but that was periumbilical and he has never had pain in the epigastric region like this before.He has been having nausea and multiple episodes of emesis. He has not been able to keep anything down since last night. Denies any fevers, chills, chest pain, sob, bladder or bowel symptoms. Associated nausea: Yes Associated symtoms: Reports nausea; Denies change in vision, chest pain, dysuria, fatigue, headache(s) or palpitations Review of Systems Const: Denies: fever(s), chills or fatigue Eyes: Denies: change in vision or eye discomfort ENMT: Denies: throat pain, odynophagia, nasal discharge or nasal congestion Card: Denies: chest pain, palpitations, edema, swelling of feet/ankles, dyspnea on exertion or orthopnea Resp: Denies: dyspnea, productive cough or non-productive cough GI: Reports: abdominal pain, nausea and vomiting; Denies: diarrhea, constipation or hematochezia : Denies: flank pain, difficulty urinating, dysuria or hematuria Musc: Denies: neck pain, back pain or extremity swelling Skin/Breast: Denies: rash or new lesions Neuro: Denies: headache(s), numbness in extremities or weakness in extremities PFSH ED PFSH: Medical History Alcohol use disorder Insomnia Surgical History No pertinent past surgical history Family History Family/Other Cancer Paternal uncle-kidney Other Chronic kidney disease (CKD) Diabetes Social History (Reviewed 07/02/22 @ 11:09 by MARCIN Garcia Smoking and tobacco status: current every day smoker cigarettes Packs smoked per day: 1.25 Alcohol intake: former Substance/Drug Use: never Lives independently: Yes Current occupational status: employed Current occupation: [employer] Special nguyễn needs: No Agree to transfusion: Yes Physical Exam Const: COMMON NORMALS: patient oriented x3 HENMT: COMMON NORMALS: normocephalic HEAD & SCALP: normocephalic MOUTH: Normal oral and palatal mucosa present THROAT: posterior oropharynx normal and uvula midline Neck/C-Spine: COMMON NORMALS: supple GENERAL: Yes normal visual inspection Resp: COMMON NORMALS: normal respiratory effort, No retractions, No use of accessory muscles and clear to auscultation bilaterally AUSCULTATION: clear to auscultation bilaterally Cardio: COMMON NORMALS: regular rate, regular rhythm, S1 normal heart sound present, S2 normal heart sound present, No gallops present (Cardio), No clicks present (Cardio), No murmurs present (Cardio) and Peripheral pulses 2+ throughout RATE: regular rate RHYTHM: regular rhythm HEART SOUNDS: S1 normal heart sound present and S2 normal heart sound present PERIPHERAL PULSES: Peripheral pulses 2+ throughout GI: COMMON NORMALS: Normal to inspection, nondistended, normoactive bowel sounds present, Soft to palpation and no masses PALPATION: Yes Soft to palpation and Yes Tenderness to palpation present (GI) (epigastric tenderness) : COMMON NORMALS: Yes no CVA tenderness BLADDER/KIDNEY EXAM: Yes no CVA tenderness Back/Pelvis: COMMON NORMALS: no CVA tenderness Extremity: COMMON NORMALS: normal to inspection Neuro: COMMON NORMALS: patient oriented x3 GAIT: Yes Normal gait present Skin: GENERAL SKIN EXAM: dry skin Course Vital Signs: Vital signs: Vital Signs Temperature 98.4 F 07/28/22 10:15 Pulse Rate 72 07/28/22 15:15 Respiratory Rate 17 07/28/22 15:15 Blood Pressure 138/91 07/28/22 15:15 Pulse Oximetry 98 07/28/22 15:15 Oxygen Delivery Me thod Room Air 07/28/22 14:29 MDM - Nausea/Vomiting/Diarrhea Medical Decision Making Pt is a 42 y/o male that comes to the ED with epigastric pain, n/v. Symptoms started last night. Pt rates his abdominal pain a 6 out of 10. Pain is located in the epigastric region and he denies any radiation or migration of pain. He has had abdominal pain in the past, but that was periumbilical and he has never had pain in the epigastric region like this before.He has been having nausea and multiple episodes of emesis. He has not been able to keep anything down since last night. Denies any fevers, chills, chest pain, sob, bladder or bowel symptoms. Vitals are stable. Patient has some epigastric area abdominal tenderness but rest of exam is benign. CBC and CMP are unremarkable. Lipase is 410. Troponin negative. EKG shows normal sinus rhythm with no ST segment elevation or depression seen. CT of abdomen pelvis shows pancreatitis with some pancreatic pseudocyst which have progressed since prior exam. Patient was given a liter of IV fluids, pain meds nausea meds and his symptoms were controlled. I went and discussed patient case with Dr. Frye and he went in and examined patient. He felt patient was stable for discharge home with close follow-up with Dr. Gutierrez tomorrow. I contacted Dr. Gutierrez and told him about patient case and he says he will see patient tomorrow. I told Dr. Gutierrez that patient should be referred to a GI specialist in [place] for a biopsy of pancreas. Patient was put on clear liquid diet for the next 48 hours then told to slowly advance diet as tolerated. He was sent home with a prescription for nausea med and hydrocodone's. Strict return to ED precautions given. Patient understood and agreed with plan. Lab Data I reviewed the patient's lab results. 07/28/22 10:20 07/28/22 10:20 Radiology Impressions Abdomen/Pelvis CT 07/28/22 10:26 IMPRESSION: 1. Extensive continued inflammatory process centered in the RIGHT upper quadrant surrounding the pancreas, duodenal C-loop, common bile duct and hepatic flexure. Some of these changes have improved since 06/08/2022. 2. Persistent soft tissue edema surrounding the pancreatic head with a few low cystic areas which may be pancreatic pseudocysts which have progressed since the prior study. Focal area involving the pancreatic head where there is loss of the normal architecture suggests this may be an area of ischemia. No hemorrhagic necrosis. 3. There is significant soft tissue inflammation involving the ascending colon and the duodenal C-loop without significant improvement. No free air or obstruction. 4. Numerous mesenteric lymph nodes in the RIGHT upper quadrant probably reactive. 5. Common bile duct is not dilated but the wall is enhancing suggesting ongoing cholangitis. 6. Low-attenuation nodule measuring 14 mm in the duodenal C-loop. Lipoma versus ulceration. Notified VINCENZO Rico at 07/28/2022 11:36 AM. Not available for consult at this time. Chest X-Ray 07/28/22 10:50 IMPRESSION: No lobar consolidation is appreciated.No acute cardiopulmonary changes are appreciated. Laboratory Results WBC 9.4 10^3/uL (4.0-10.0) 07/28/22 10:20 RBC 5.34 10^6/uL (4.1-5.3) H 07/28/22 10:20 Hgb 15.8 g/dL (11.7-16.6) 07/28/22 10:20 Hct 46.6 % (42.0-52.0) 07/28/22 10:20 MCV 87.3 fl (80-94) 07/28/22 10:20 MCH 29.6 pg (28.0-34.0) 07/28/22 10:20 MCHC 33.9 g/dL (30.0-36.0) 07/28/22 10:20 RDW 13.8 % (12.1-15.1) 07/28/22 10:20 Plt Count 260 10^3/cmm (130-400) 07/28/22 10:20 MPV 9.4 fL (7.4-10.4) 07/28/22 10:20 Neut % (Auto) 66.7 % 07/28/22 10:20 Lymph % (Auto) 18.0 % 07/28/22 10:20 [place] % (Auto) 8.3 % 07/28/22 10:20 Eos % (Auto) 6.1 % 07/28/22 10:20 Baso % (Auto) 0.6 % 07/28/22 10:20 Neut # (Auto) 6.26 10^3/uL (1.8-7.7) 07/28/22 10:20 Lymph # (Auto) 1.7 10^3/uL (0.8-4.8) 07/28/22 10:20 [place] # (Auto) 0.8 10^3/uL (0.2-0.9) 07/28/22 10:20 Eos # (Auto) 0.6 10^3/uL (0.0-0.8) 07/28/22 10:20 Baso # (Auto) 0.1 10^3/uL (0.0-0.1) 07/28/22 10:20 Nucleated RBC % (auto) 0 % 07/28/22 10:20 Nucleated RBCs # 0.0 /100WBC 07/28/22 10:20 Sodium 134 mmol/L (136-145) L 07/28/22 10:20 Potassium 3.8 mmol/L (3.5-5.1) 07/28/22 10:20 Chloride 96 mmol/L (98-107) L 07/28/22 10:20 Carbon Dioxide 23 mmol/L (22-29) 07/28/22 10:20 Anion Gap 18.8 (5-19) 07/28/22 10:20 BUN 6 mg/dL (6-20) 07/28/22 10:20 Creatinine 0.6 mg/dL (0.7-1.2) L 07/28/22 10:20 GFR Calculation 148.5 mL/min (90-130) H 07/28/22 10:20 Glucose 94 mg/dL (65-115) 07/28/22 10:20 Calculated Osmolality 275 mOsm/kg (285-295) L 07/28/22 10:20 Calcium 9.9 mg/dL (8.5-10.5) 07/28/22 10:20 Total Bilirubin 0.9 mg/dL (0.15-1.2) 07/28/22 10:20 AST 15 U/L (0-40) 07/28/22 10:20 ALT 9 U/L (0-41) 07/28/22 10:20 Alkaline Phosphatase 97 U/L (40-130) 07/28/22 10:20 Troponin T Baseline 6 ng/L (0-15) 07/28/22 10:20 Troponin T 120 Minute 6.00 ng/L (0-15) 07/28/22 12:15 Delta Troponin T 0 ABS# (0-10) 07/28/22 12:15 Total Protein 7.0 g/dL (6.6-8.7) 07/28/22 10:20 Albumin 4.7 g/dL (3.5-5.2) 07/28/22 10:20 Globulin 2.3 g/dL (1.3-4.6) 07/28/22 10:20 Lipase 410 U/L (13-60) H 07/28/22 10:20 Urine Color Yellow (Yellow) 07/28/22 10:54 Urine Appearance Clear (CLEAR) 07/28/22 10:54 Urine pH 7 (5-7) 07/28/22 10:54 Ur Specific Upperco 1.020 (1.005-1.030) 07/28/22 10:54 Urine Protein Neg (Negative) 07/28/22 10:54 Urine Glucose (UA) Norm (Normal) 07/28/22 10:54 Urine Ketones 2+ (Negative) H 07/28/22 10:54 Urine Blood Neg (Negative) 07/28/22 10:54 Urine Nitrate Negative (Negative) 07/28/22 10:54 Urine Bilirubin 1+ (Negative) H 07/28/22 10:54 Urine Urobilinogen 1 mg/dL (Negative) H 07/28/22 10:54 Ur Leukocyte Esterase Negative (Negative) 07/28/22 10:54 H. pylori IgG Antibody Negative (Negative) 07/28/22 10:20 EKG Data EKG 1: EKG interpretation date: 07/28/22 Interpretation: Normal sinus rhythm, 60 bpm, no ST segment elevation or depression seen. Discharge Plan Discharge Patient Disposition: Home Clinical Impression: Pancreatitis Qualifiers: Chronicity: acute Pancreatitis type: unspecified pancreatitis type Acute pancreatitis complication: no infection or necrosis Qualified Code(s): K85.90 - Acute pancreatitis without necrosis or infection, unspecified Condition: Stable Prescriptions: New ondansetron 4 mg tablet,disintegrating 4 mg PO Q8H PRN (Reason: nausea and vomiting) Qty: 20 0RF No Action omeprazole 40 mg capsule,delayed release(DR/EC) 40 mg PO DAILY Men's Multivitamin 400-20-300 mcg Tablet 1 tab PO DAILY Discharge Orders: Discharge ED (Routine); Ordered 07/28/22 Ordered By: Bernabe Godoy Referrals: Nima Gutierrez MD [Primary Care Provider] - Discharge Diet: Advance as tolerated Discharge Activity: Increase activity as tolerated Patient Instructions: Pancreatitis (ED), Opioid Safety Activity Restrictions/Additional Instructions: Follow-up with Dr. Gutierrez tomorrow for reevaluation. Clear liquid diet for the next 48 hours then slowly advance diet as tolerated. Take medications as prescribed. Return to the ER or your medical provider if condition worsens. Please read and understand discharge instructions. Thank you for choosing [facility] for your healthcare needs today. Please realize this is an emergency room and that we are providing you with a medical screening exam and this may not be complete and all inclusive of all the testing and or work up that you may need to determine your ailment or severity of your illness. It is very important that you follow up as instructed or that you return to the Emergency Department should you have concerns or if your condition changes or worsens in any way. Sign Out Sign Out Data: Patient Sign Out occurred on 07/28/22 at 14:48. Patient's care was discussed, and care was transferred from to Reji Frye DO. Coding Level of Care Code ED Lieutenant Ballistics for Chg Fwd Documented by User: Reji Frye DO 07/28/22 17:13 HPI - Nausea/Vomiting/Diarrhea General: Chief complaint: Nausea/Vomiting/Diarrhea Stated complaint: n/v, upper abd pain Time Seen by Provider: 07/28/22 10:04 [facility] ED PFSH: Medical History Alcohol use disorder Insomnia Surgical History No pertinent past surgical history Family History Family/Other Cancer Paternal uncle-kidney Other Chronic kidney disease (CKD) Diabetes Social History Smoking and tobacco status: current every day smoker cigarettes Packs smoked per day: 1.25 Alcohol intake: former Substance/Drug Use: never Lives independently: Yes Current occupational status: employed Current occupation: [employer] Special nguyễn needs: No Agree to transfusion: Yes Course Vital Signs: Vital signs: Vital Signs Temperature 98.4 F 07/28/22 10:15 Pulse Rate 72 07/28/22 15:15 Respiratory Rate 17 07/28/22 15:15 Blood Pressure 138/91 07/28/22 15:15 Pulse Oximetry 98 07/28/22 15:15 Oxygen Delivery Me thod Room Air 07/28/22 14:29 MDM - Nausea/Vomiting/Diarrhea Medical Decision Making Pt is a 42 y/o male that comes to the ED with epigastric pain, n/v. Symptoms started last night. Pt rates his abdominal pain a 6 out of 10. Pain is located in the epigastric region and he denies any radiation or migration of pain. He has had abdominal pain in the past, but that was periumbilical and he has never had pain in the epigastric region like this before.He has been having nausea and multiple episodes of emesis. He has not been able to keep anything down since last night. Denies any fevers, chills, chest pain, sob, bladder or bowel symptoms. Vitals are stable. Patient has some epigastric area abdominal tenderness but rest of exam is benign. CBC and CMP are unremarkable. Lipase is 410. Troponin negative. EKG shows normal sinus rhythm with no ST segment elevation or depression seen. CT of abdomen pelvis shows pancreatitis with some pancreatic pseudocyst which have progressed since prior exam. Patient was given a liter of IV fluids, pain meds nausea meds and his symptoms were controlled. I went and discussed patient case with Dr. Frye and he went in and examined patient. He felt patient was stable for discharge home with close follow-up with Dr. Gutierrez tomorrow. I contacted Dr. Gutierrez and told him about patient case and he says he will see patient tomorrow. I told Dr. Gutierrez that patient should be referred to a GI specialist in [place] for a biopsy of pancreas. Patient was put on clear liquid diet for the next 48 hours then told to slowly advance diet as tolerated. He was sent home with a prescription for nausea med and hydrocodone's. Strict return to ED precautions given. Patient understood and agreed with plan. Patient seen evaluated and examined. Concur with Bernabe Godoy's documentation. His symptoms are resolved his abdomen is soft and nontender. Recommend discharge home clinical diet for 2 days antiemetics as needed. Advance diet as tolerated recommend follow-up with his primary care to repeat labs in the next 2 days and referral to Dr. Mcgee in [place] for further evaluation of the pancreatic findings on CT Medical Records I reviewed the patient's medical records. Lab Data 07/28/22 10:20 07/28/22 10:20 Radiology Impressions Abdomen/Pelvis CT 07/28/22 10:26 IMPRESSION: 1. Extensive continued inflammatory process centered in the RIGHT upper quadrant surrounding the pancreas, duodenal C-loop, common bile duct and hepatic flexure. Some of these changes have improved since 06/08/2022. 2. Persistent soft tissue edema surrounding the pancreatic head with a few low cystic areas which may be pancreatic pseudocysts which have progressed since the prior study. Focal area involving the pancreatic head where there is loss of the normal architecture suggests this may be an area of ischemia. No hemorrhagic necrosis. 3. There is significant soft tissue inflammation involving the ascending colon and the duodenal C-loop without significant improvement. No free air or obstruction. 4. Numerous mesenteric lymph nodes in the RIGHT upper quadrant probably reactive. 5. Common bile duct is not dilated but the wall is enhancing suggesting ongoing cholangitis. 6. Low-attenuation nodule measuring 14 mm in the duodenal C-loop. Lipoma versus ulceration. Notified VINCENZO Rico at 07/28/2022 11:36 AM. Not available for consult at this time. Chest X-Ray 07/28/22 10:50 IMPRESSION: No lobar consolidation is appreciated.No acute cardiopulmonary changes are appreciated. Laboratory Results WBC 9.4 10^3/uL (4.0-10.0) 07/28/22 10:20 RBC 5.34 10^6/uL (4.1-5.3) H 07/28/22 10:20 Hgb 15.8 g/dL (11.7-16.6) 07/28/22 10:20 Hct 46.6 % (42.0-52.0) 07/28/22 10:20 MCV 87.3 fl (80-94) 07/28/22 10:20 MCH 29.6 pg (28.0-34.0) 07/28/22 10:20 MCHC 33.9 g/dL (30.0-36.0) 07/28/22 10:20 RDW 13.8 % (12.1-15.1) 07/28/22 10:20 Plt Count 260 10^3/cmm (130-400) 07/28/22 10:20 MPV 9.4 fL (7.4-10.4) 07/28/22 10:20 Neut % (Auto) 66.7 % 07/28/22 10:20 Lymph % (Auto) 18.0 % 07/28/22 10:20 [place] % (Auto) 8.3 % 07/28/22 10:20 Eos % (Auto) 6.1 % 07/28/22 10:20 Baso % (Auto) 0.6 % 07/28/22 10:20 Neut # (Auto) 6.26 10^3/uL (1.8-7.7) 07/28/22 10:20 Lymph # (Auto) 1.7 10^3/uL (0.8-4.8) 07/28/22 10:20 [place] # (Auto) 0.8 10^3/uL (0.2-0.9) 07/28/22 10:20 Eos # (Auto) 0.6 10^3/uL (0.0-0.8) 07/28/22 10:20 Baso # (Auto) 0.1 10^3/uL (0.0-0.1) 07/28/22 10:20 Nucleated RBC % (auto) 0 % 07/28/22 10:20 Nucleated RBCs # 0.0 /100WBC 07/28/22 10:20 Sodium 134 mmol/L (136-145) L 07/28/22 10:20 Potassium 3.8 mmol/L (3.5-5.1) 07/28/22 10:20 Chloride 96 mmol/L (98-107) L 07/28/22 10:20 Carbon Dioxide 23 mmol/L (22-29) 07/28/22 10:20 Anion Gap 18.8 (5-19) 07/28/22 10:20 BUN 6 mg/dL (6-20) 07/28/22 10:20 Creatinine 0.6 mg/dL (0.7-1.2) L 07/28/22 10:20 GFR Calculation 148.5 mL/min (90-130) H 07/28/22 10:20 Glucose 94 mg/dL (65-115) 07/28/22 10:20 Calculated Osmolality 275 mOsm/kg (285-295) L 07/28/22 10:20 Calcium 9.9 mg/dL (8.5-10.5) 07/28/22 10:20 Total Bilirubin 0.9 mg/dL (0.15-1.2) 07/28/22 10:20 AST 15 U/L (0-40) 07/28/22 10:20 ALT 9 U/L (0-41) 07/28/22 10:20 Alkaline Phosphatase 97 U/L (40-130) 07/28/22 10:20 Troponin T Baseline 6 ng/L (0-15) 07/28/22 10:20 Troponin T 120 Minute 6.00 ng/L (0-15) 07/28/22 12:15 Delta Troponin T 0 ABS# (0-10) 07/28/22 12:15 Total Protein 7.0 g/dL (6.6-8.7) 07/28/22 10:20 Albumin 4.7 g/dL (3.5-5.2) 07/28/22 10:20 Globulin 2.3 g/dL (1.3-4.6) 07/28/22 10:20 Lipase 410 U/L (13-60) H 07/28/22 10:20 Urine Color Yellow (Yellow) 07/28/22 10:54 Urine Appearance Clear (CLEAR) 07/28/22 10:54 Urine pH 7 (5-7) 07/28/22 10:54 Ur Specific Upperco 1.020 (1.005-1.030) 07/28/22 10:54 Urine Protein Neg (Negative) 07/28/22 10:54 Urine Glucose (UA) Norm (Normal) 07/28/22 10:54 Urine Ketones 2+ (Negative) H 07/28/22 10:54 Urine Blood Neg (Negative) 07/28/22 10:54 Urine Nitrate Negative (Negative) 07/28/22 10:54 Urine Bilirubin 1+ (Negative) H 07/28/22 10:54 Urine Urobilinogen 1 mg/dL (Negative) H 07/28/22 10:54 Ur Leukocyte Esterase Negative (Negative) 07/28/22 10:54 H. pylori IgG Antibody Negative (Negative) 07/28/22 10:20 Discharge Plan Discharge Patient Disposition: Home Clinical Impression: Pancreatitis Qualifiers: Chronicity: acute Pancreatitis type: unspecified pancreatitis type Acute pancreatitis complication: no infection or necrosis Qualified Code(s): K85.90 - Acute pancreatitis without necrosis or infection, unspecified Condition: Stable Prescriptions: New ondansetron 4 mg tablet,disintegrating 4 mg PO Q8H PRN (Reason: nausea and vomiting) Qty: 20 0RF No Action omeprazole 40 mg capsule,delayed release(DR/EC) 40 mg PO DAILY Men's Multivitamin 400-20-300 mcg Tablet 1 tab PO DAILY Discharge Orders: Discharge ED (Routine); Ordered 07/28/22 Ordered By: Bernabe Godoy Referrals: Nima Gutierrez MD [Primary Care Provider] - Discharge Diet: Advance as tolerated Discharge Activity: Increase activity as tolerated Patient Instructions: Pancreatitis (ED), Opioid Safety Activity Restrictions/Additional Instructions: Follow-up with Dr. Gutierrez tomorrow for reevaluation. Clear liquid diet for the next 48 hours then slowly advance diet as tolerated. Take medications as prescribed. Return to the ER or your medical provider if condition worsens. Please read and understand discharge instructions. Thank you for choosing [facility] for your healthcare needs today. Please realize this is an emergency room and that we are providing you with a medical screening exam and this may not be complete and all inclusive of all the testing and or work up that you may need to determine your ailment or severity of your illness. It is very important that you follow up as instructed or that you return to the Emergency Department should you have concerns or if your condition changes or worsens in any way. Sign Out Sign Out Data: Patient Sign Out occurred on 07/28/22 at 14:48. Patient's care was discussed, and care was transferred from to Reji Frye DO. Coding Level of Care Code ED Lieutenant Ballistics for Mauro Day
--- NOTE | 2022-07-28 10:38 | ECG_ITS ---
[facility] Test Date: 2022-07-28 Pat Name: Chava Stone Department: Room: Gender: Male Vp Training: : 1980 Requested By: Bernabe Godoy Order Number: [id number] Bergman MD: Saqib Morillo M.D. Measurements Intervals [place] Rate: 68 P: 12 IN: 123 QRS: 41 QRSD: 87 T: 41 QT: 404 QTc: 432 Interpretive Statements SINUS RHYTHM No previous ECG available for comparison Electronically Signed On 07-28-2022 13:20:02 CDT by Saqib Morillo M.D. [id number]
[2022-07-28 10:42] LABS: Basophils # 0.1 10^3/uL (0.0-0.1); Basophils % 0.6 %; Eosinophils # 0.6 10^3/uL (0.0-0.8); Eosinophils % 6.1 %; Hematocrit 46.6 % (42.0-52.0); Hemoglobin 15.8 g/dL (11.7-16.6); Lymphocytes # 1.7 10^3/uL (0.8-4.8); Mean Corpuscular HGB Conc 33.9 g/dL (30.0-36.0); Mean Corpuscular Hemoglobin 29.6 pg (28.0-34.0); Mean Corpuscular Volume 87.3 fl (80-94); Mean Platelet Volume 9.4 fL (7.4-10.4); Monocytes # 0.8 10^3/uL (0.2-0.9); Monocytes % 8.3 %; Neutrophils # 6.26 10^3/uL (1.8-7.7); Neutrophils % 66.7 %; Nucleated Red Blood Cells % 0 %; Platelet Count 260 10^3/cmm (130-400); Red Blood Count 5.34 10^6/uL (4.1-5.3); Red Cell Distribution Width 13.8 % (12.1-15.1); White Blood Count 9.4 10^3/uL (4.0-10.0)
--- NOTE | 2022-07-28 10:50 | XRR_ITS ---
PROCEDURE INFORMATION: Exam: XR Chest Exam date and time: 07/28/2022 11:02 AM Age: 42 years old Clinical indication: Other: Epigastric pain.No history of trauma or recent surgery is provided. TECHNIQUE: Imaging protocol: Radiologic exam of the chest. 1image(s) are provided. Views: 1 view. COMPARISON: CT abdomen pelvis w con* [id number] 07/28/2022 10:54 AM. No previous chest radiograph is currently available. FINDINGS: Lungs: No lobar consolidation is appreciated. There is some granulomatous type appearance about the right lower lung zone. Pleural spaces: No pneumothorax or pleural effusion is appreciated. Heart/Mediastinum: The cardiomediastinal silhouette is normal. No cardiac decompensation is appreciated. Diaphragm: There is slight asymmetric right hemidiaphragm elevation. Bones/joints: Osseous alignment is maintained.No displaced fracture or dislocation is appreciated. There appears to be some mild chronic degeneration of the acromioclavicular junctions. Soft tissues: No radiopaque foreign body or subcutaneous emphysema is appreciated. XR/XR chest 1V portable [id number] IMPRESSION: No lobar consolidation is appreciated.No acute cardiopulmonary changes are appreciated.
[2022-07-28] MEDS: iohexol 350 mg/mL 500 mL Btl (per mL) IV (10:58)
[2022-07-28 11:03] LABS: Add Urine Microscopic? NO; Charge for UA Resulting for Rev
[2022-07-28 11:17] LABS: Urine Color Yellow (Yellow)
[2022-07-28 11:18] LABS: Bilirubin Urine 1+ (Negative); Blood Urine Neg (Negative); Glucose Urine UA Norm (Normal); Ketones Urine 2+ (Negative); Leukocyte Esterase Urine Negative (Negative); Nitrate Urine Negative (Negative); Protein Urine Neg (Negative); Urine Appearance Clear (CLEAR); Urobilinogen Urine 1 mg/dL (Negative); pH Urine 7 (5-7)
[2022-07-28 11:20] LABS: Alanine Aminotransferase 9 U/L (0-41); Albumin Level 4.7 g/dL (3.5-5.2); Alkaline Phosphatase 97 U/L (40-130); Anion Gap 18.8 (5-19); Aspartate Amino Transferase 15 U/L (0-40); Blood Urea Nitrogen 6 mg/dL (6-20); Calcium 9.9 mg/dL (8.5-10.5); Carbon Dioxide 23 mmol/L (22-29); Chloride 96 mmol/L (98-107); Globulin 2.3 g/dL (1.3-4.6); Glomerular Filtration Rate 148.5 mL/min (90-130); Glucose 94 mg/dL (65-115); Osmolality Calculated 275 mOsm/kg (285-295); Potassium 3.8 mmol/L (3.5-5.1); Sodium 134 mmol/L (136-145); Total Bilirubin 0.9 mg/dL (0.15-1.2)
[2022-07-28] MEDS: ondansetron 2 mg/ML SDV 2 mL 4 MG IVP (11:21)
[2022-07-28] MEDS: morphine 4 mg/mL SDV 1 mL IVP (11:21)
[2022-07-28] MEDS: sodium chloride 0.9% 1,000 ML 999 ML IV (11:24)
[2022-07-28 11:27] LABS: Troponin(5th) Baseline 6 ng/L (0-15)
[2022-07-28 11:46] LABS: Lipase 410 U/L (13-60)
--- NOTE | 2022-07-28 12:17 | ECG_ITS ---
[facility] Test Date: 2022-07-28 Pat Name: Chava Stone Department: Room: Gender: Male Manager Business Process: : 1980 Requested By: Bernabe Godoy Order Number: [id number] Bergman MD: Saqib Morillo M.D. Measurements Intervals [place] Rate: 58 P: 12 MS: 127 QRS: 38 QRSD: 89 T: 37 QT: 458 QTc: 452 Interpretive Statements SINUS BRADYCARDIA Compared to ECG 07/28/2022 10:38:55 Sinus rhythm no longer present Electronically Signed On 07-28-2022 13:55:13 CDT by Saqib Morillo M.D. [id number]
[2022-07-28 12:26] LABS: H. Pylori IgG Antibody Negative (Negative)
[2022-07-28 12:55] LABS: Troponin 5 2HR Delta 0 ABS# (0-10)
[2022-07-28] MEDS: oxyCODONE-APAP 5-325 mg Tablet 1 TAB PO (15:10)
--- NOTE | 2022-07-28 15:15 | PC.NURSE ---
pt was sent home with a percocet5/325 for home use tonight. pt was educated on when to use it.
== END 2022-07-28 15:16 | disposition home or self-care (01) ==
PROVIDERS: Physician Assistant; Emergency Provider Family Medicine; PCP Family Medicine
DX: K85.90 Acute pancreatitis without necrosis or infection, unspecified (principal)
CPT/HCPCS: 36415; 71045; 74177; 80053; 81003; 83690; 84484; 85025; 86677; 93005; 96374; 96375; 99285; J2270; J2405; J7030; Q9967

== ENCOUNTER 2023-05-19 15:31 | Outpatient (CLI) | payer OTHER, SELFPAY ==
--- NOTE | 2023-05-19 15:38 | XR_ITS ---
WS: [id number] Examination: XR thoracic spine 3V* [id number] Reason for Exam: mid back pain Date: May 19, 2023 Comparison: None. Findings: The pedicles and the bone density are intact. There is no anterior wedging or compression. There is no subluxation. Mild hypertrophic changes are p resent. Impression: Mild hypertrophic changes are present without compression or subluxation of the thoracic spine.
== END 2023-05-19 15:32 | disposition home or self-care (01) ==
LOC: RAD 15:32
PROVIDERS: PCP Family Medicine; Visit Provider Family Medicine
DX: M54.6 Pain in thoracic spine (principal)
CPT/HCPCS: 72072

== ENCOUNTER 2023-07-25 14:28 | Outpatient (CLI) | payer OTHER, SELFPAY ==
[2023-07-25] MEDS: iohexol 350 mg/mL 500 mL Btl (per mL) IV (14:53)
--- NOTE | 2023-07-25 15:00 | CT_ITS ---
WS: [id number] CT ABDOMEN WITH CONTRAST HISTORY: pancreatic cyst Contiguous single phase 5 mm axial imaging performed to the abdomen. Oral contrast has not been provi ded. Coronal and sagittal reformats are submitted. All CT scans at [facility] use at least on e of these dose optimization techniques: automated exposure control; mA and/or kV adjustment per chapo ent size (includes targeted exams where dose is matched to clinical indication); or iterative reconst ruction. IV CONTRAST: Omnipaque 350; 100 mL IV. Oral contrast: No DLP: 235.30 mGy.cm COMPARISON: 07/28/2022 Lower thorax: Benign granuloma anterior RIGHT lower lung field. Heart is normal size. No hiatal herni a. Liver/biliary system: Normal size with no intrahepatic dilatation. Gallbladder: Normal. No gallstones or wall thickening. No pericholecystic fluid. Pancreas: There has been a significant improvement in the inflammatory process in the RIGHT upper saravanan drant centered around the duodenum and the pancreatic head. There is a small amount of residual edema centered between the second portion of the duodenum and the pancreatic head. Very slight enlargement and inflammation of the pancreatic head. Reidentified is the area of nonenhancement at the pancreati c head which may be an area of necrosis. No hemorrhage. The small cystic collections in the pancreati c head and duodenum have resolved consistent with resolved small pseudocyst. The body and tail of the pancreas are normal. No significant pancreatic duct dilatation. There is very slight dilatation of t he pancreatic duct at the pancreatic head. Spleen: Normal size spleen. No mass or infarct. Adrenal glands: Normal. Right kidney: Normal. Left kidney: Normal. Aorta: Normal. Lymphadenopathy: None. Free fluid: No free fluid. GI tract: Stomach is normally distended. Mild wall thickening of the second portion of the duodenum r elated to the inflammatory process at the pancreatic head. Abdominal wall: Unremarkable abdominal wall. No hernia. Visualized osseous structures: L5 anterolisthesis by 3 mm. Bilateral pars defects at L5. CT/CT abdomen w con* [id number] IMPRESSION: 1. Mildly persistent but significantly improved inflammatory changes centered at the pancreatic head and second portion of the duodenum since 07/28/2022. Ther e is a small amount of edema with mild thickening of the duodenal C-loop and th e pancreatic head. Majority of the small cystic areas which are probably pseudo cysts have resolved. No hemorrhagic necrosis of the pancreas. 2. No new or enlarging pseudocyst. 3. No bile duct dilatation. No significant pancreatic duct dilatation or atrop hy of the tail.
== END 2023-07-25 14:29 | disposition home or self-care (01) ==
LOC: RAD 14:28
PROVIDERS: PCP Family Medicine; Visit Provider Family Medicine
DX: K86.89 Other specified diseases of pancreas (principal); K86.2 Cyst of pancreas
CPT/HCPCS: 74160; Q9967